=== PATIENT | male | born 1950 | race Caucasian/White ===

== ENCOUNTER → 2019-05-16 | Outpatient (CLI) | payer MEDICARE, SELFPAY ==
[2019-05-16 18:01] LABS: Valproic Acid (Depakene) Level 55 ug/mL (50-100)
== END | disposition home or self-care (01) ==
PROVIDERS: PCP Family Medicine; Referring Provider Family Medicine; Visit Provider Family Medicine
DX: R56.9 Unspecified convulsions (principal)
CPT/HCPCS: 36415; 80164

== ENCOUNTER → 2019-08-23 | Outpatient (CLI) | payer MEDICARE, SELFPAY ==
[2019-08-23 10:29] LABS: PSA,Total - Annual Screen 0.89 ng/mL (0.00-4.00)
== END | disposition home or self-care (01) ==
LOC: MFPLAB 09:18
PROVIDERS: PCP Family Medicine; Referring Provider Family Medicine; Visit Provider Family Medicine
DX: Z12.5 Encounter for screening for malignant neoplasm of prostate (principal)
CPT/HCPCS: 36415; 84153; G0103

== ENCOUNTER 2019-09-10 05:22 | Day surgery (SDC) | payer MEDICARE, SELFPAY ==
[2019-09-03 13:37] VITALS: BMI 26.8
[2019-09-10] VITALS (9 sets, daily range): BP systolic 111–174; BP diastolic 74–114; PULSE 56–66; RESP 16; TEMP 36.3–36.8; O2SAT 96–100; BMI 26.8
--- NOTE | 2019-09-10 | COLBX_PTH ---
PATIENT: OLGA LOZANO LOC: EN U#:[id number] AGE/SX: 68/M ROOM: RE09/10/[address]: Dr. Zeb Vaughn MD : 1950 BED: DIS: 09/10/2019 SPEC #: [id number] RECD: 09/10/19 09:15 STATUS: BENNETT JENAE #: [id number] RACHEL: 09/10/19 00:[address]: Zeb Vaughn DEPT: SURGICAL PATHOLOGY RECD BY: Vince Diaz ENTERED: 09/10/19 13:57 SP TYPE: COLON BX OTHR DR: Dr. Rj Monzon MD Tissues: A - Duodenum, NOS B - Gastric mucous membrane C - Stomach, NOS D - Esophagus, NOS E - Esophagus, NOS Procedures: Special Stain Group II Surgery Specimen Level IV Alcian Blue/PAS (control) HEADER OPERATION: EGD (MOD) PRE-OP DIAGNOSIS: History Aparicio's, GERD TISSUE SUBMITTED: A - Duodenum biopsy, B - Antrum biopsy for histo and H. pylori, C - Lesser curvature polyp biopsy, D - Distal esophagus biopsy, E - Mid esophagus white plaque biopsy MICROSCOPIC DIAGNOSIS A. Duodenum, biopsy: Minimal nonspecific chronic inflammation. B. Gastric antrum, biopsy: Chronic gastritis. See comment. C. Lesser curvature of stomach polyp, biopsy: Consistent with hyperplastic polyp. D. Distal esophagus, biopsy: Gastroesophageal junction mucosa with chronic inflammation. No evidence of intestinal metaplasia. Focal acute inflammation. See comment. E. Mid esophagus, biopsy: Fragments of benign squamous mucosa. No evidence of inflammation. AM:enrrique 09/11/19 COMMENT B. The results of immunohistochemistry for Helicobacter pylori will be reported separately ([id number]). D. Alcian blue/PAS stain with matched control supports the above diagnosis. MICROSCOPIC DESCRIPTION Slides are reviewed. GROSS DESCRIPTION A - Received in fixative is one container labeled with the patient's name and designated duodenum biopsy. The specimen consists of one irregular fragment of light lira soft tissue that measures 0.2 x 0.2 x 0.1 cm. The specimen is totally submitted in one cassette. B - Received in fixative is one container labeled with the patient's name and designated gastric antrum. The specimen consists of one irregular fragment of light lira soft tissue that measures 0.6 x 0.2 x 0.1 cm. The specimen is totally submitted in one cassette. C - Received in fixative is one container labeled with the patient's name and designated lesser curvature polyp biopsy. The specimen consists of one irregular fragment of light lira soft tissue that measures 0.2 x 0.2 x 0.1 cm. The specimen is totally submitted in one cassette. D - Received in fixative is one container labeled with the patient's name and designated distal esophagus biopsy. The specimen consists of multiple irregular fragments of light lira soft tissue that in aggregate measure 1 x 0.8 x 0.1 cm. The specimen is totally submitted in one cassette. E - Received in fixative is one container labeled with the patient's name and designated mid esophagus white plaque biopsy. The specimen consists of multiple irregular fragments of light lira soft tissue that in aggregate measure 1 x 0.5 x 0.1 cm. The specimen is totally submitted in one cassette. / AM:enrrique 09/10/19 TC:3 CPT: 10723 x5, 31828
[2019-09-10] MEDS: Lactated Ringers 1,000 ML 100 ML IV (06:01)
--- NOTE | 2019-09-10 06:07 | PCM.HP.BLA ---
Problem List (1) History of Aparicio's esophagus Status: Acute (2) Gastroesophageal reflux disease Status: Acute Qualifiers: Esophagitis presence: with esophagitis History and Physical Date of Admission: 09/10/19 Intake Visit Reasons: Esophagogastroduodenoscopy Chief Complaint: possible [employer] Specialist Required: No Is patient in pain?: No Allergies No Known Allergies Allergy (Verified 09/03/19 13:38) Medications divalproex 500 mg tablet,extended release 24 hr 500 mg PO DAILY tab 09/03/19 [History Confirmed 09/03/19] felbamate 600 mg tablet ea PO 09/03/19 [History Confirmed 09/03/19] [facility] Medical History (Updated 09/03/19 @ 14:[address] Zeb Vaughn MD) History of Aparicio's esophagus (Acute) Gastroesophageal reflux disease (Acute) GERD (gastroesophageal reflux disease) (Acute) Hemorrhoid (Acute) Seizure (Acute) Surgical History (Updated 09/03/19 @ 13:36 by Lizeth Francis) History of colonoscopy (Acute) History of esophagogastroduodenoscopy (EGD) (Acute ~2009) Family History (Updated 09/03/19 @ 13:37 by Lizeth Francis) Mother Diabetes Thyroid disorder Father CVA (cerebral vascular accident) Cancer Grandfather Heart disease Social History (Updated 09/03/19 @ 14:[address] Zeb Vaughn MD) Smoking Status: Never smoker HPI HPI HPI: OLGA LOZANO, is a 68 M who presents to the office today for surgical consultation regarding potential history of Aparicio's esophagus. The patient has had long-term reflux disease. He was on a PPI for an extended period of time but he is now off of that because of concerns of possible side effect. His most recent and only previous upper endoscopy was April 09, 2009. That was performed in [facility]. Findings suggested visually mild gastritis hiatal hernia reflux esophagitis and irregularity suspicious for Aparicio's. Final pathology showed mild chronic active gastritis with minute lymphoid aggregate. Squamous mucosa of the distal esophagus with fold focal mild acute erosive esophagitis. Adjacent gastric glandular mucosa with mild chronic inflammation and intestinal metaplasia. They do not actually state Aparicio's but that would be consistent with Aparicio's. The patient is not currently on any reflux medications. He does not use tobacco or alcohol. He states he had about a purposeful 15 pound weight loss and that traumatic densely helped with his reflux symptoms. He works in [employer]. The patient is referred by his primary care doctor Dr Rj Monzon regarding the possible past history of Aparicoi's esophagus and recommendations and a surgical written consult will be returned to him. HPI HPI HPI: OLGA LOZANO, is a 68 M who presents to the office today for ROS General General: No weight change, appetite, fatigue, colon cancer, breast cancer or weakness HEENT HEENT: No difficulty swallowing, eye injury, eye surgery, swollen glands or hoarseness Endo Endocrine: No thyroid disease, diabetes mellitus, thyroid cancer, Hair loss, heat intolerance or cold intolerance Cardio Cardiovascular: No murmur, pacemaker, heart disease, atrial fibrillation, high blood pressure, heart attack, heart stent, palpitations, shortness of breat with exertion or chest pain Psych Psychiatric: No depression, anxiety or hearing voices Resp Respiratory: No shortness of breath, No sleep apnea, No cough, No COPD, No asthma, No emphysema, No wheezing Gastro Gastrointestinal: No abdominal pain, No nausea or vomiting, No diarrhea, No constipation, No blood in stool, Yes acid reflux, Yes hemorrhoids, No ulcers, No gallbladder problem, No black,tarry stools Earnest Hematologic: No blood thinners, No blood disorders, No bleeding, No anemia, No blood clots Neuro Neurologic: No weakness Exam Const General: cooperative, healthy appearing, comfortable, no acute distress Nutritional Appearance: average body habitus, well nourished Orientation: alert, awake, oriented x3 HENMT Head: normal to inspection Chest Chest palpation & inspection: normal inspection of the chest Resp Effort & Inspection: normal respiratory effort Auscultation: clear to auscultation bilaterally Cardio Rate: regular rate Rhythm: regular rhythm Heart Sounds: no murmurs GI Palpation: soft, no hepatosplenomegaly Auscultation: normal bowel sounds Musc Cervical Spine: normal cervical lordosis Neuro Speech: speech normal Extrem General: no calf tenderness Psych Affect: normal affect Assessment & Plan Problems 1. Gastroesophageal reflux disease with esophagitis K21.0 2. History of Aparicio's esophagus Z87.19 Plan Really 60-year-old gentleman with a previous history consistent with Aparicio's esophagus. He has had a previous history of quite symptomatic gastroesophageal reflux disease but currently has managed on diet and some weight loss. He is not currently on any medication. There is no personal or family history of esophageal cancer. There is no personal family history of colon polyps or colon cancer. I propose for him a esophagogastroduodenoscopy with possible biopsy. Very careful inspection of the EG junction will be pursued. The patient has had an opportunity to ask and have questions answered. Believe that this can be accomplished with monitored anesthesia. I appreciate the opportunity of assisting with her surgical care. Cc: Dr Rj Vaughn M.D., F.A.C.S. Orders Orders: EGD Today Coding Level of Care Code 32133 Diagnoses Gastroesophageal reflux disease with esophagitis K21.0 ??Esophagitis presence: with esophagitis History of Aparicio's esophagus Z87.19 09/03/19 1409 <Electronically signed by Zeb Vaughn MD> Date Zeb Vaughn MD I have re-examined the patient. There are no clinical changes since date of exam. Procedure Criteria Procedure Type: Elective COVID Risk Discussion: The surgeon/proceduralist and patient have discussed in detail the risk of exposure to and/or potential harm posed by the COVID-19 virus with having a surgery/procedure at this time versus the risk of delaying the surgery/procedure. It is not possible to know either the risk of delaying the surgery or procedure or chance of getting an infection with perfect accuracy, but a joint decision was made between the patient and the surgeon/proceduralist to proceed at this time with the scheduled surgery/procedure as indicated on the consent form.
--- NOTE | 2019-09-10 06:30 | IMM_PTH ---
PATIENT: OLGA LOZANO LOC: EN U#:[id number] AGE/SX: 68/M ROOM: RE09/10/[address]: Dr. Zeb Vaughn MD : 1950 BED: DIS: 09/10/2019 SPEC #: [id number] RECD: 09/11/19 07:28 STATUS: BENNETT RESilke #: [id number] RACHEL: 09/10/19 06:[address]: Zeb Vaughn DEPT: IMMUNOHISTOCHEMISTRY RECD BY: Khushi Meek Chai ENTERED: 09/11/19 07:28 SP TYPE: IMMUNO OTHR DR: Dr. Rj Monzon MD Tissues: B - Stomach, NOS Procedures: H Pylori (initial) PHYSICIAN & INSTITUTION [place] [id number] SPECIMEN INFORMATION: Tissue Source: B - Antrum biopsy Clinical Info: Aparicio's, GERD Specimen Number: [id number] CPT code: 91365 METHODOLOGY: Deparaffinized sections of prefer/formalin-fixed tissue or PAP/DQ stained slides are incubated with monoclonal/polyclonal antibodies/oligonucleotide probes. Localization is made via biotin free immunoperoxidase method. Appropriate controls are performed and reacted as expected. Results on target cell population are indicated in the following table: RESULTS: ANTIBODY / CLONE RESULT Block B H Pylori (polyclonal) negative These tests were developed and their performance characteristics determined by [facility]. They may not have been cleared or approved by the U.S. Food and Drug Administration. The FDA has determined that such clearance or approval is not necessary. INTERPRETATION: B. Antrum biopsy: Negative for Helicobacter pylori organisms. AM:enrrique 09/12/19
--- NOTE | 2019-09-10 06:49 | OP.EGD_ITS ---
Patient Name: Tito Nunez Procedure Date: 09/10/2019 6:16 AM Date of : 1950 Age: 68 Procedure: Upper GI endoscopy Indications: Gastro-esophageal reflux disease, Follow-up of Aparicio's esophagus Providers: Zeb Vaughn MD Referring MD: Rj Monzon Medicines: Midazolam 3.5 mg IV, Meperidine 100 mg IV Complications: No immediate complications. Procedure: Pre-Anesthesia Assessment: - Prior to the procedure, a History and Physical was performed, and patient medications and allergies were reviewed. The patient's tolerance of previous anesthesia was also reviewed. The risks and benefits of the procedure and the sedation options and risks were discussed with the patient. All questions were answered, and informed consent was obtained. Prior Anticoagulants: The patient has taken no previous anticoagulant or antiplatelet agents. ASA Grade Assessment: II - A patient with mild systemic disease. After reviewing the risks and benefits, the patient was deemed in satisfactory condition to undergo the procedure. After obtaining informed consent, the endoscope was passed under direct vision. Throughout the procedure, the patient's blood pressure, pulse, and oxygen saturations were monitored continuously. The Endoscope was introduced through the mouth, and advanced to the second part of duodenum. The upper GI endoscopy was accomplished without difficulty. The patient tolerated the procedure well. Moderate Sedation: Moderate (conscious) sedation was personally administered by the endoscopist. The following parameters were monitored: oxygen saturation, heart rate, blood pressure, and response to care. Total physician intraservice time was 15 minutes. Scope In: 6:28:57 AM Scope Out: 6:39:52 AM Total Procedure Duration Time 0 hours 10 minutes 55 seconds Findings: Esophagitis with no bleeding was found 40 cm from the incisors. Biopsies were taken with a cold forceps for histology. There were esophageal mucosal changes consistent with short-segment Aparicio's esophagus present at the gastroesophageal junction. The maximum longitudinal extent of these mucosal changes was 2 cm in length. Mucosa was biopsied with a cold forceps for histology in a targeted manner at the gastroesophageal junction. mild mucosal variance characterized by plague was found in the middle third of the esophagus. Biopsies were taken with a cold forceps for histology. A small hiatal hernia was present. Diffuse mildly erythematous mucosa without bleeding was found in the gastric antrum. Biopsies were taken with a cold forceps for histology. One sessile polyp with no bleeding and no stigmata of recent bleeding was found on the lesser curvature of the stomach. The polyp was removed with a cold biopsy forceps. Resection and retrieval were complete. Diffuse mildly erythematous mucosa without active bleeding and with no stigmata of bleeding was found in the duodenal bulb. Biopsies were taken with a cold forceps for histology. Impression: - Reflux esophagitis. Biopsied. - Esophageal mucosal changes consistent with short-segment Aparicio's esophagus. Biopsied. - Esophageal mucosal variant. Biopsied. - Small hiatal hernia. - Erythematous mucosa in the antrum. Biopsied. - One gastric polyp. Resected and retrieved. - Erythematous duodenopathy. Biopsied. Recommendation: - Discharge patient to home. - Resume previous diet. - Continue present medications. - Return to my office in 1 week. Consider possible additional workup for surgical reflux procedure Procedure Code(s): --- Professional --- 29110, Esophagogastroduodenoscopy, flexible, transoral; with biopsy, single or multiple 60551, 59, Moderate sedation services provided by the same physician or other qualified health home health care social worker performing the diagnostic or therapeutic service that the sedation supports, requiring the presence of an independent trained observer to assist in the monitoring of the patient's level of consciousness and physiological status; initial 15 minutes of intraservice time, patient age 5 years or older Diagnosis Code(s): --- Professional --- K21.0, Gastro-esophageal reflux disease with esophagitis K22.70, Aparicio's esophagus without dysplasia K22.8, Other specified diseases of esophagus K44.9, Diaphragmatic hernia without obstruction or gangrene K31.89, Other diseases of stomach and duodenum K31.7, Polyp of stomach and duodenum CPT copyright 2017 [employer]. All rights reserved. The codes documented in this report are preliminary and upon career placement specialist review may be revised to meet current compliance requirements. Zeb Vaughn MD 09/10/2019 6:48:39 AM This report has been signed electronically. Number of Addenda: 0 Note Initiated On: 09/10/2019 6:16 AM
--- NOTE | 2019-09-10 06:49 | OP.CCLET_ITS ---
09/10/2019 Rj Monzon [address] [place] [address] Re : Upper GI endoscopy procedure for Tito Nunez Dear Dr. Monzon This procedure was performed on Tuesday, September 10, 2019. My impressions and recommendations are as follows: Impressions : - Reflux esophagitis. Biopsied. - Esophageal mucosal changes consistent with short-segment Aparicio's esophagus. Biopsied. - Esophageal mucosal variant. Biopsied. - Small hiatal hernia. - Erythematous mucosa in the antrum. Biopsied. - One gastric polyp. Resected and retrieved. - Erythematous duodenopathy. Biopsied. Recommendations : - Discharge patient to home. - Resume previous diet. - Continue present medications. - Return to my office in 1 week. Consider possible additional workup for surgical reflux procedure My findings are described in the full procedure note, which is enclosed. If I can be of further assistance, please feel free to contact me at Doctor phone number(s): Work: . Sincerely, Zeb Vaughn MD 09/10/2019 6:48:39 AM This report has been signed electronically.
== END 2019-09-10 07:59 | disposition home or self-care (01) ==
LOC: EN 05:22 → AC 05:23
PROVIDERS: PCP Family Medicine; Referring Provider Family Medicine; Visit Provider Surgery
PROC: (CPT 43239; principal; 2019-09-10 06:25)
DX: K29.50 Unspecified chronic gastritis without bleeding (principal); K29.80 Duodenitis without bleeding; K31.7 Polyp of stomach and duodenum; K21.0 Gastro-esophageal reflux disease with esophagitis; K44.9 Diaphragmatic hernia without obstruction or gangrene; Z11.59 Encounter for screening for other viral diseases
CPT/HCPCS: 43239; 87635; 88305; 88313; 88342; 99152; 99153; G2023; J7120; U0003

== ENCOUNTER → 2020-07-29 08:18 | Outpatient (CLI) | payer MEDICARE, SELFPAY ==
[2020-05-26 08:57] VITALS: BMI 27.6
[2020-07-29 10:24] LABS: Absolute Lymphocyte Count 1.24 X10^3/uL (0.83-4.51); Absolute Neutrophil Count 3.4 X10^3/uL (2.0-7.7); Basophil# 0.03 X10^3/uL; Basophil% 0.6 % (0-1); Eosinophil# 0.03 X10^3/uL; Eosinophils% 0.6 % (0-5); Hematocrit 42.5 % (40-54); Hemoglobin 14.5 g/dL (13.0-16.5); Lymphocyte # 1.24 X10^3/ul (0.83-4.51); Lymphocyte % 24.4 % (19-41); Mean Corp Hgb Conc 34.1 g/dL (32-36); Mean Corpuscular Hgb 33.6 pg (27.0-32.0); Mean Corpuscular Volume 98.4 fL (80-94); Mean Platelet Vol. 9.9 fl (6.2-12.0); Monocyte# 0.38 X10^3/uL; Monocyte% 7.5 % (0-10); NRBC Flagged by Analyzer 0 % (0-5); Neutrophil % 66.7 % (47-70); Platelet Count 266 K/mm3 (150-450); RBC Distribution Width CV 11.6 % (11.6-14.6); RBC Distribution Width SD 42.1 fl (35.1-43.9); Red Blood Count 4.32 M/mm3 (4.6-6.2); White Blood Count 5.1 K/mm3 (4.4-11.0)
[2020-07-29 10:43] LABS: Hemoglobin A1c 5.1 % (3.8-5.6); Vitamin B12 688 pg/mL (211-911)
[2020-07-29 10:57] LABS: ALB/GLOB Ratio 0.9 RATIO (0.9-2.4); AST(SGOT) 32 U/L (15-37); Alanine Aminotransfer ALT/SGPT 55 U/L (16-61); Albumin, Serum 3.4 g/dL (3.2-5.0); Alkaline Phosphatase 64 U/L (45-117); Anion Gap 5 (5-15); BUN 19 mg/dL (7-18); BUN/Creat Ratio 16.1 RATIO (10-20); Calcium,Total 8.8 mg/dL (8.5-10.1); Chloride 107 mmol/L (98-107); Creatinine, Serum 1.18 mg/dL (0.70-1.30); EST Glomerular Filtration Rate 65 mL/min (>60); Est Glom Filt Rate - Afr Amer 79 mL/min (>60); Globulin 3.7 g/dL (2.2-4.2); Glucose 62 mg/dL (74-106); Potassium 4.7 mmol/L (3.5-5.1); Protein, Total 7.1 g/dL (6.4-8.2); Sodium Level 143 mmol/L (136-145); Thyroid Stim Hormone (TSH) 2.84 uIU/mL (0.358-3.74)
[2020-07-31 20:39] LABS: Anti-Thyroglobulin AB < 1.0 IU/mL (0.0-0.9); Thyroglobulin, Serum Qt. 9.3 ng/mL (1.4-29.2); Thyroid Peroxidase AB 9 IU/mL (0-34)
== END ==
PROVIDERS: PCP Family Medicine; Referring Provider Family Medicine; Visit Provider Family Medicine
DX: R79.89 Other specified abnormal findings of blood chemistry (principal)
CPT/HCPCS: 36415; 80053; 82607; 83036; 84432; 84439; 84443; 85025; 86376; 86800

== ENCOUNTER → 2020-08-04 08:41 | Outpatient (CLI) | payer MEDICARE, SELFPAY ==
[2020-05-26 08:57] VITALS: BMI 27.6
--- NOTE | 2020-08-04 08:44 | RAD_ITS ---
STUDY: X-RAY - LUMBAR SPINE REASON FOR EXAM: Male, 69 years old. FACET ARTHROPATHY TECHNIQUE: 5 view(s) of the lumbar spine were obtained. COMPARISON: None FINDINGS: Normal lumbar lordosis. There is multilevel endplate spondylosis of the lumbar vertebrae. There is multi-level degenerative disc disease with multi-level disc space narrowing. There is facet arthropathy most prominent at L3-S1. The soft tissue structures are unremarkable. RAD/L/S Spine Min 4 Views IMPRESSION: Degenerative changes of the spine. Electronically Signed: Beverly Ruiz MD at 9:52 EDT Tel , Service support ,
== END ==
PROVIDERS: PCP Family Medicine; Referring Provider Family Medicine; Visit Provider Family Medicine
DX: M47.819 Spondylosis without myelopathy or radiculopathy, site unspecified (principal)
CPT/HCPCS: 72110

== ENCOUNTER → 2020-09-16 09:16 | Outpatient (CLI) | payer MEDICARE, SELFPAY ==
[2020-05-26 08:57] VITALS: BMI 27.6
[2020-09-16 11:18] LABS: ALB/GLOB Ratio 0.9 RATIO (0.9-2.4); AST(SGOT) 22 U/L (15-37); Alanine Aminotransfer ALT/SGPT 39 U/L (16-61); Albumin, Serum 3.5 g/dL (3.2-5.0); Alkaline Phosphatase 63 U/L (45-117); Anion Gap 7 (5-15); BUN 23 mg/dL (7-18); BUN/Creat Ratio 18.7 RATIO (10-20); Calcium,Total 8.8 mg/dL (8.5-10.1); Chloride 108 mmol/L (98-107); Creatinine, Serum 1.23 mg/dL (0.70-1.30); EST Glomerular Filtration Rate 62 mL/min (>60); Est Glom Filt Rate - Afr Amer 75 mL/min (>60); Globulin 3.8 g/dL (2.2-4.2); Glucose 67 mg/dL (74-106); PSA,Total - Annual Screen 0.94 ng/mL (0.00-4.00); Potassium 3.8 mmol/L (3.5-5.1); Protein, Total 7.3 g/dL (6.4-8.2); Sodium Level 142 mmol/L (136-145)
[2020-09-17 16:43] LABS: Anti-Thyroglobulin AB < 1.0 IU/mL (0.0-0.9); Thyroglobulin, Serum Qt. 9.5 ng/mL (1.4-29.2); Thyroid Peroxidase AB < 8 IU/mL (0-34)
== END ==
PROVIDERS: PCP Family Medicine; Referring Provider Family Medicine; Visit Provider Family Medicine
DX: E04.1 Nontoxic single thyroid nodule (principal); Z12.5 Encounter for screening for malignant neoplasm of prostate
CPT/HCPCS: 36415; 80053; 84153; 84432; 84439; 84443; 86376; 86800; G0103

== ENCOUNTER → 2020-09-18 11:27 | Outpatient (CLI) | payer MEDICARE, SELFPAY ==
[2020-05-26 08:57] VITALS: BMI 27.6
--- NOTE | 2020-09-18 11:30 | US_ITS ---
STUDY: THYROID ULTRASOUND REASON FOR EXAM: Male, 69 years old. Palpable nodule TECHNIQUE: Ultrasound evaluation of the thyroid was performed with real-time and static souza-scale imaging. COMPARISON: None. FINDINGS: RIGHT LOBE: The right lobe of the thyroid gland measures 5.4 x 1.8 x 1.8 cm. There is a homogeneous echotexture. There is a solid/cystic 3 mm nodule LEFT LOBE: The left lobe of the thyroid gland measures 5.0 x 1.6 x 2.1 cm. There is a homogeneous echotexture. There are 2 separate simple cysts, both measuring 3 mm. ISTHMUS: The isthmus measures 0.4 cm. The regional lymph nodes are normal. US/Thyroid IMPRESSION: Enlarged homogeneous thyroid gland. No suspicious solid hypoechoic nodule 0.3 cm complex solid/cystic in the mid right thyroid lobe 0.3 cm cysts in the mid and lower pole of the left lobe Electronically Signed: Candido Massey MD at 12:39 EDT , Service support ,
== END ==
PROVIDERS: PCP Family Medicine; Referring Provider Family Medicine; Visit Provider Family Medicine
DX: E04.1 Nontoxic single thyroid nodule (principal)
CPT/HCPCS: 76536

== ENCOUNTER 2020-10-23 05:16 | Day surgery (SDC) | payer MEDICARE, SELFPAY ==
[2020-10-23] VITALS (14 sets, daily range): BP systolic 120–167; BP diastolic 54–92; PULSE 56–65; RESP 14–18; TEMP 36.1–36.4; O2SAT 98–100; BMI 27.6
[2020-10-23] MEDS: Lactated Ringers 1,000 ML 100 ML IV (06:02)
--- NOTE | 2020-10-23 06:17 | PCM.HP.STD ---
HPI - General HPI Narrative OLGA LOZANO, is a 69 M who presents for a surveillance colonoscopy. There is a history of a previous colon polyps perhaps 7 years ago. He has no bright red blood per rectum or melena. He has had chronic bowel complaints. He has not had a bowel surgery. [facility] Medical History (Updated 10/23/20 @ 06:[address] Zeb Vaughn MD) Back pain Gastroesophageal reflux disease GERD (gastroesophageal reflux disease) Hemorrhoid History of Aparicio's esophagus History of hiatal hernia History of steroid therapy Injury of head and neck Non-smoker Seizure Wears glasses Wears hearing aid Home Medications divalproex 500 mg tablet,extended release 24 hr 500 mg PO BID #60 tablet 05/26/20 [Rx Last Taken 10/23/20] famotidine 20 mg tablet 20 mg PO DAILY 05/26/20 [History Last Taken 10/23/20] felbamate 600 mg tablet 600 mg PO TID #90 tablet 05/26/20 [Rx Last Taken 10/23/20] Allergy/AdvReac Type Severity Reaction Status Date / Time No Known Allergies Allergy Verified 10/23/20 05:45 Family History (Updated 05/26/20 @ 09:04 by Zoila Bennett) Mother Diabetes Thyroid disorder Father CVA (cerebral vascular accident) Cancer Grandfather Heart disease Brother Cancer Surgical History History of colonoscopy History of esophagogastroduodenoscopy (EGD) (~2009) Social History (Updated 05/26/20 @ 13:[address] Zoran Villarreal MD) Smoking Status: Never smoker Electronic Cigarette Use: not used second hand exposure: No alcohol intake: never substance use type: does not use ROS Constitutional Constitutional: Reports systems reviewed and no addt'l complaints, except as documented Cardiovascular Cardiovascular: Denies chest pain Respiratory/Chest Respiratory/Chest: Denies shortness of breath at rest Gastrointestinal Gastrointestinal: Denies abdominal pain, change in bowel habits, hematochezia or melena Vital Signs Vital Signs Vital Signs: 10/23/20 05:47 Temperature 97.0 F L Temperature Source Temporal Pulse Rate 57 L Respiratory Rate 16 Respiratory Pattern Normal Blood Pressure 127/87 H Blood Pressure Mean 100 Blood Pressure Source Monitor Blood Pressure Position Semi-Fowlers Blood Pressure Location Right Arm Pulse Ox 98 Oxygen Delivery Method Room Air Weight Weight: 176 lb 12.972 oz Body Mass Index (BMI) 27.6 Physical Exam Const alert, oriented x3 and no apparent distress General Appearance: cooperative and comfortable Eyes General Eye: normal appearance of both eyes Neck General: normal visual inspection Chest inspection of chest normal Resp Effort and Inspection: able to speak in complete sentences and symmetric chest movement Auscultation: clear to auscultation bilaterally Cardio regular rate and regular rhythm GI soft to palpation, non-tender and non-distended Extremity no calf tenderness Neuro oriented x3 Psych thought process normal Assessment & Plan Assessment/Plan (1) Screening for intestinal cancer: PLAN: The patient presents via open access today. I recommend to him a screening colonoscopy with possible biopsy or polypectomy as indicated. He is aware of the technique, benefit, risk, alternatives. He has had an opportunity to ask and have questions answered. We will proceed as noted. Zeb Vaughn M.D., F.A.C.S.
--- NOTE | 2020-10-23 06:30 | COLBX_PTH ---
PATIENT: OLGA LOZANO LOC: EN U#:[id number] AGE/SX: 69/M ROOM: RE10/23/[address]: Dr. Zeb Vaughn MD : 1950 BED: DIS: 10/23/2020 SPEC #: [id number] RECD: 10/23/20 10:59 STATUS: BENNETT RESilke #: [id number] RACHEL: 10/23/20 06:[address]: Zeb Vaughn DEPT: SURGICAL PATHOLOGY RECD BY: Barbara Duong ENTERED: 10/23/20 11:29 SP TYPE: COLON BX OT DR: Dr. Rj Monzon MD Tissues: A - Cecum, NOS B - Ascending colon C - Transverse colon D - Sigmoid colon biopsy Procedures: Surgery Specimen Level IV HEADER OPERATION: Colonoscopy ? open access (MOD) PRE-OP DIAGNOSIS: Screening for intestinal cancer TISSUE SUBMITTED: A. Cecum polyp biopsy, B. Mid ascending polyp, C. Proximal transverse polyp biopsy, D. Mid sigmoid polyp MICROSCOPIC DIAGNOSIS A. Cecal polyp, biopsy: Fragments of tubular adenoma. B. Mid ascending colon polyp, biopsy: Fragments of tubular adenoma. C. Proximal transverse colon polyp, biopsy: Fragments of tubular adenoma. D. Mid sigmoid colon polyp, biopsy: Fragments of tubular adenoma. AM:enrrique 10/26/2020 MICROSCOPIC DESCRIPTION Slides are reviewed. GROSS DESCRIPTION A - Received in fixative is one container labeled with the patient's name and designated cecal polyp biopsy. The specimen consists of multiple irregular fragments of light lira soft tissue that in aggregate measure 1.5 x 1 x 0.1 cm. The specimen is totally submitted in one cassette. B - Received in fixative is one container labeled with the patient's name and designated mid ascending polyp. The specimen consists of multiple irregular fragments of light lira soft tissue that in aggregate measure 1 x 0.8 x 0.1 cm. The specimen is totally submitted in one cassette. C - Received in fixative is one container labeled with the patient's name and designated proximal transverse polyp biopsy. The specimen consists of multiple irregular fragments of light lira soft tissue that in aggregate measure 0.7 x 0.5 x 0.1 cm. The specimen is totally submitted in one cassette. D - Received in fixative is one container labeled with the patient's name and designated mid sigmoid polyp. The specimen consists of multiple irregular fragments of light lira soft tissue that in aggregate measure 1 x 1 x 0.2 cm. The specimen is totally submitted in one cassette. / AM:enrrique 10/23/20 TC:5 CPT: 51310 x4
--- NOTE | 2020-10-23 07:04 | OP.COLON_ITS ---
Patient Name: Tito Nunez Procedure Date: 10/23/2020 6:14 AM Date of : 1950 Age: 69 Procedure: Colonoscopy Indications: High risk colon cancer surveillance: Personal history of colonic polyps Providers: Zeb Vaughn MD Medicines: Midazolam 4.5 mg IV, Meperidine 100 mg IV Patient Profile: Last Colonoscopy: more than 3 years ago. Complications: No immediate complications. Procedure: Pre-Anesthesia Assessment: - Prior to the procedure, a History and Physical was performed, and patient medications and allergies were reviewed. The patient's tolerance of previous anesthesia was also reviewed. The risks and benefits of the procedure and the sedation options and risks were discussed with the patient. All questions were answered, and informed consent was obtained. Prior Anticoagulants: The patient has taken no previous anticoagulant or antiplatelet agents. ASA Grade Assessment: II - A patient with mild systemic disease. After reviewing the risks and benefits, the patient was deemed in satisfactory condition to undergo the procedure. After I obtained informed consent, the scope was passed under direct vision. Throughout the procedure, the patient's blood pressure, pulse, and oxygen saturations were monitored continuously. The colonoscope was introduced through the anus and advanced to the cecum, identified by appendiceal orifice and ileocecal valve. The colonoscopy was performed without difficulty. The patient tolerated the procedure well. The quality of the bowel preparation was adequate to identify polyps. The ileocecal valve and the appendiceal orifice were photographed. Moderate Sedation: Moderate (conscious) sedation was personally administered by the endoscopist. The following parameters were monitored: oxygen saturation, heart rate, blood pressure, and response to care. Total physician intraservice time was 18 minutes. Scope In: 6:31:30 AM Scope Withdrawal Time 0 hours 19 minutes 56 seconds Scope Out: 6:57:22 AM Total Procedure Duration Time 0 hours 25 minutes 52 seconds Findings: The digital rectal exam findings include non-thrombosed external hemorrhoids, non-thrombosed internal hemorrhoids and internal hemorrhoids that prolapse with straining, but require manual replacement into the anal canal (Grade III). Pertinent negatives include normal prostate (size, shape, and consistency). A 8 mm polyp was found in the cecum. The polyp was sessile. The polyp was removed with a cold biopsy forceps. Resection and retrieval were complete. A 9 mm polyp was found in the mid ascending colon. The polyp was sessile. The polyp was removed with a cold snare. Resection and retrieval were complete. A 6 mm polyp was found in the proximal transverse colon. The polyp was sessile. The polyp was removed with a cold biopsy forceps. Resection and retrieval were complete. A 9 mm polyp was found in the mid sigmoid colon. The polyp was sessile. The polyp was removed with a hot snare. Resection and retrieval were complete. Scattered diverticula were found in the sigmoid colon. Impression: - Non-thrombosed external hemorrhoids, non-thrombosed internal hemorrhoids and internal hemorrhoids that prolapse with straining, but require manual replacement into the anal canal (Grade III) found on digital rectal exam. - One 8 mm polyp in the cecum, removed with a cold biopsy forceps. Resected and retrieved. - One 9 mm polyp in the mid ascending colon, removed with a cold snare. Resected and retrieved. - One 6 mm polyp in the proximal transverse colon, removed with a cold biopsy forceps. Resected and retrieved. - One 9 mm polyp in the mid sigmoid colon, removed with a hot snare. Resected and retrieved. - Diverticulosis in the sigmoid colon. Recommendation: - Discharge patient to home. - Resume previous diet. - Continue present medications. - Repeat colonoscopy in 3 years for surveillance based on pathology results. - Telephone my office for pathology results in 1 week. Procedure Code(s): --- Professional --- 71761, Colonoscopy, flexible; with removal of tumor(s), polyp(s), or other lesion(s) by snare technique 95048, 59, Colonoscopy, flexible; with biopsy, single or multiple 52607, 59, Moderate sedation services provided by the same physician or other qualified health progressive care nurse performing the diagnostic or therapeutic service that the sedation supports, requiring the presence of an independent trained observer to assist in the monitoring of the patient's level of consciousness and physiological status; initial 15 minutes of intraservice time, patient age 5 years or older Diagnosis Code(s): --- Professional --- Z86.010, Personal history of colonic polyps K64.2, Third degree hemorrhoids K64.4, Residual hemorrhoidal skin tags D12.0, Benign neoplasm of cecum D12.2, Benign neoplasm of ascending colon D12.3, Benign neoplasm of transverse colon (hepatic flexure or splenic flexure) D12.5, Benign neoplasm of sigmoid colon K57.30, Diverticulosis of large intestine without perforation or abscess without bleeding CPT copyright 2017 [employer]. All rights reserved. The codes documented in this report are preliminary and upon flap presser review may be revised to meet current compliance requirements. Zeb Vaughn MD 10/23/2020 7:03:47 AM This report has been signed electronically. Number of Addenda: 0 Note Initiated On: 10/23/2020 6:14 AM
--- NOTE | 2020-10-23 07:05 | OP.CCLET_ITS ---
10/23/2020 Rj Monzon [address] [place] [address] Re : Colonoscopy procedure for Tito Nunez Dear Dr. Monzon This procedure was performed on Friday, October 23, 2020. My impressions and recommendations are as follows: Impressions : - Non-thrombosed external hemorrhoids, non-thrombosed internal hemorrhoids and internal hemorrhoids that prolapse with straining, but require manual replacement into the anal canal (Grade III) found on digital rectal exam. - One 8 mm polyp in the cecum, removed with a cold biopsy forceps. Resected and retrieved. - One 9 mm polyp in the mid ascending colon, removed with a cold snare. Resected and retrieved. - One 6 mm polyp in the proximal transverse colon, removed with a cold biopsy forceps. Resected and retrieved. - One 9 mm polyp in the mid sigmoid colon, removed with a hot snare. Resected and retrieved. - Diverticulosis in the sigmoid colon. Recommendations : - Discharge patient to home. - Resume previous diet. - Continue present medications. - Repeat colonoscopy in 3 years for surveillance based on pathology results. - Telephone my office for pathology results in 1 week. My findings are described in the full procedure note, which is enclosed. If I can be of further assistance, please feel free to contact me at Doctor phone number(s): Work: . Sincerely, Zeb Vaughn MD 10/23/2020 7:03:47 AM This report has been signed electronically.
== END 2020-10-23 08:09 | disposition home or self-care (01) ==
LOC: EN 05:16 → AC 05:17
PROVIDERS: PCP Family Medicine; Referring Provider Family Medicine; Visit Provider Surgery
PROC: 0DJD8ZZ Inspection of Lower Intestinal Tract, Via Natural or Artificial Opening Endoscopic (ICD-10-PCS; CPT 45378; principal; 2020-10-23 06:25)
DX: Z12.11 Encounter for screening for malignant neoplasm of colon (principal); D12.2 Benign neoplasm of ascending colon; D12.0 Benign neoplasm of cecum; D12.5 Benign neoplasm of sigmoid colon; D12.3 Benign neoplasm of transverse colon; K57.30 Diverticulosis of large intestine without perforation or abscess without bleeding; K64.2 Third degree hemorrhoids; Z86.010 Personal history of colon polyps; K21.9 Gastro-esophageal reflux disease without esophagitis
CPT/HCPCS: 45380; 88305; 99152; 99153; J7120

== ENCOUNTER → 2020-12-05 07:46 | Outpatient (CLI) | payer MEDICARE, SELFPAY ==
[2020-12-05 08:52] LABS: Hematocrit 45.3 % (40-54); Hemoglobin 15.5 g/dL (13.0-16.5); Mean Corp Hgb Conc 34.2 g/dL (32-36); Mean Corpuscular Hgb 33.3 pg (27.0-32.0); Mean Corpuscular Volume 97.2 fL (80-94); Mean Platelet Vol. 10.1 fl (6.2-12.0); Platelet Count 254 K/mm3 (150-450); RBC Distribution Width CV 11.3 % (11.6-14.6); RBC Distribution Width SD 40.1 fl (35.1-43.9); Red Blood Count 4.66 M/mm3 (4.6-6.2); White Blood Count 5.2 K/mm3 (4.4-11.0)
[2020-12-05 09:18] LABS: ALB/GLOB Ratio 0.9 RATIO (0.9-2.4); AST(SGOT) 20 U/L (15-37); Alanine Aminotransfer ALT/SGPT 47 U/L (16-61); Albumin, Serum 3.5 g/dL (3.2-5.0); Alkaline Phosphatase 66 U/L (45-117); Anion Gap 6 (5-15); BUN 22 mg/dL (7-18); BUN/Creat Ratio 15.9 RATIO (10-20); Calcium,Total 8.6 mg/dL (8.5-10.1); Chloride 107 mmol/L (98-107); Creatinine, Serum 1.38 mg/dL (0.70-1.30); EST Glomerular Filtration Rate 54 mL/min (>60); Est Glom Filt Rate - Afr Amer 66 mL/min (>60); Globulin 3.7 g/dL (2.2-4.2); Glucose 94 mg/dL (74-106); Potassium 4.2 mmol/L (3.5-5.1); Protein, Total 7.2 g/dL (6.4-8.2); Sodium Level 143 mmol/L (136-145)
[2020-12-05 09:41] LABS: Valproic Acid (Depakene) Level 69 ug/mL (50-100)
[2020-12-08 09:08] LABS: Albumin 4.1 g/dL (2.9-4.4); Alpha-1-Globulins 0.2 g/dL (0.0-0.4); Alpha-2-Globulins 0.5 g/dL (0.4-1.0); Gamma Globulin 1.3 g/dL (0.4-1.8); Immunoglobulin A 261 mg/dL (61-437); Immunoglobulin G 1238 mg/dL (603-1613); Immunoglobulin M 166 mg/dL (20-172); PROEL- TOTAL PROTEIN 6.9 g/dL (6.0-8.5)
== END ==
PROVIDERS: PCP Family Medicine; Referring Provider Nurse Practitioner Family; Visit Provider Nurse Practitioner Family
DX: G40.909 Epilepsy, unspecified, not intractable, without status epilepticus (principal); Z79.899 Other long term (current) drug therapy
CPT/HCPCS: 36415; 80053; 80164; 82784; 84165; 85027; 86334

== ENCOUNTER → 2021-02-10 14:07 | Outpatient (CLI) | payer MEDICARE, SELFPAY ==
--- NOTE | 2021-02-10 14:09 | RAD_ITS ---
STUDY: X-RAY - RIGHT HAND REASON FOR EXAM: Male, 70 years old. HAND PAIN TECHNIQUE: 3 view(s) of the hand. COMPARISON: None. FINDINGS: Normal radiocarpal articulation. Normal distal radioulnar joint. Normal visualized carpal bones. Normal carpal articulations Normal carpometacarpal articulation of the thumb. Normal second through fifth carpometacarpal joints. Normal metacarpi. Normal metacarpophalangeal joint of the thumb. Normal interphalangeal joint of the thumb. Normal proximal and distal phalanges of the thumb. Joint space narrowing of the second third metacarpophalangeal joints consistent with mild arthrosis. Normal proximal and distal interphalangeal joints of the second through fifth fingers. Normal phalanges of the second through fifth fingers. The soft tissue structures are unremarkable. 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 Electronically Signed: Mino Holcomb MD at 10:46 EST Tel , Service support ,
== END ==
PROVIDERS: PCP Family Medicine; Referring Provider Family Medicine; Visit Provider Family Medicine
DX: M79.641 Pain in right hand (principal)
CPT/HCPCS: 73130

== ENCOUNTER 2021-04-09 15:30 | Outpatient (RCR) | payer MEDICARE, SELFPAY ==
--- NOTE | 2021-03-10 13:55 | HP.PTEVAL ---
Patient's Visit Information OLGA LOZANO is a 70 year old M referred to Physical Therapy by Dr. Rj Monzon MD with a diagnosis of LUMBAR RADICULOPATHY. Date of Evaluation: 03/10/21 Physical Therapist: Tito Gomes PT, Cert MDT, OCS - Visit Plan Frequency: 2x /Week Duration: 4 Weeks Plan: PT INTERVETIONS DLS ABD/BACK ,POSTURAL EX'S ,LE FLEXABLITY ,FUNCTIONAL STRENGTHNEING AND MODALTIES NEEDED - Subjective This 70 y/o male presents to physical therapy with lumbar radiculopathy. Patient has had lumbar radicular symptoms ~ 2 years, but have intermittent. Patient symptoms have became right LS occasional right lateral leg. No mechanism of pain just cumulative affect overtime. Seen DR recommended PT, x-rays and tried prednisone. Patient did have pain injections several years which helped. Aggravating factors standing ,carrying heavy bags ,lifting and walking. Alleviating rest. Patient pain affects quality of sleep. Patient symptoms affects ability to perform ADLS and housework . Bowel/bladder -. coughing/sneezing -. C/O paresthesia right leg. SOCIAL: . VOCATION: [employer] - Pain Right Back Pain Intensity (Out of 10): 5 Pain Intensity Range: 10 Left Lower Extremity Pain Intensity (Out of 10): 4 Pain Intensity Range: 10 - Objective POSTURE: mild forward posture. GAIT: reciprocal pattern. NEURO: c/o paresthesia right lateral leg , reflexes L3-L4,L4-L5,L5-S1 2/3. SYMMTRIES: align. MMT: quads/hams 4/5 ,hip flexion 4/5 ,ankle 4/5. LUMBAR ROM : flexion min loss ,extension mod/severe pain right side ,side glides mod loss. FLEXABLITY: hamstrings mod loss - Special Tests L/S Slump test left side: Negative L/S Slump test right side: Negative L/S Left Straight Leg Raise: Negative L/S Right Straight Leg Raise: Negative Lumbar Standing: Flexion - Mechanical Response: No effect Lumbar Standing: Flexion - Symptoms During Testing: No effect Lumbar Standing: Flexion - Symptoms After Testing: No effect Lumbar Standing: Extension - Mechanical Response: No effect Lumbar Standing: Extension - Symptoms During Testing: Increases Lumbar Standing: Extension - Symptoms After Testing: No worse Lumbar Standing: Right Side Glides - Mechanical Response: No effect Lumbar Standing: Right Side [place] - Symptoms During Testing: Increases Lumbar Standing: Right Side [place] - Symptoms After Testing: No worse Lumbar Standing: Left Side [place] - Mechanical Response: No effect Lumbar Standing: Left Side [place] - Symptoms During Testing: No effect Lumbar Standing: Left Side [place] - Symptoms After Testing: No effect - Balance/Special Test Scores Oswestry Low Back Score: 19 - Goals Goal 1:: I with HEP for back pain Goal Time Frame: 4-6 Weeks Goal 2:: Patient improve posture/body mechanics 80% of the time Goal Time Frame: 4-6 Weeks Goal 3:: Patient to improve lumbar ROM function of recovery for housework's tasks Goal Time Frame: 4-6 Weeks Goal 4:: Patient to improve back owestry by 5 points to improve QOL/function Goal Time Frame: 4-6 Weeks Goal 5:: Patient to demonstrate 50% improvement of decrease radiculopathy to improve function Goal Time Frame: 4-6 Weeks - Rehabilitation Potential Physical Therapy Diagnosis: This patient has possible lateral stenosis with symptoms worse with standing affecting job demands ,housework tasks as well as position amd movement tests thus will benefit from skilled PT. Rehabilitation Potential: Good - Anticipated Interventions Patient/Client Instruction: Educate patient on: Condition, Plan of Care For the Purpose of:: To decrease pain, To increase ROM, To improve muscle performance and motor function, To increase tolerance to activity/condition/position, To improve performance and independence with ADL's, To improve ability of physical actions for home/community/work/leisure, To improve health of tissue, To decrease soft tissue restriction, To increase flexibility/ROM, To prevent re-injury Therapeutic Exercise to Include: Strength training, Endurance training, Balance training, Body mechanics, Postural training, Flexibilty training, Dynamic Lumbar Stabilization For the Purpose of:: To decrease pain, To increase ROM, To improve muscle performance and motor function, To improve ability to perform ADL's, To increase tolerance to activity/condition/position, To improve ability of physical actions for home/community/work/leisure, To improve gait and locomotor functions, To improve health of tissue, To decrease soft tissue restriction, To increase flexibility/ROM TENS: Yes IF ES: Yes Cryotherapy (ice pack, ice massage): Yes Thermo therapy (hot pack): Yes Ultrasound (thermal/non thermal): Yes For the Purpose of:: To decrease pain, To increase ROM, To improve nutrient delivery to tissue, To increase oxygenation perfusion, To improve muscle performance and motor function, To improve health of tissue, To decrease soft tissue restriction, To increase flexibility/ROM Thank you for the opportunity to evaluate your patient. For Medicare and Medicare HMO plans, please review the plan of care and approve it. It will need to be FAXED BACK to us at [phone] for Medicare purposes. For Medicare only, by signing this I certify the plan of care. Please let me know if there are questions or concerns regarding this plan of care. Physician Signature: Date:
--- NOTE | 2021-04-09 16:10 | HP.PTDCSUM ---
It has been my pleasure to treat OLGA LOZANO referred by Dr. Rj Monzon MD, with the diagnosis of LUMBAR RADICULOPATHY for a total of 9 visit(s). Discharge Date: 04/09/21 Please see the following information for a summary of their discharge status. Subjective: Doing well ..progressing well ready for d/c Right Back Pain Intensity (Out of 10): 0 Left Lower Extremity Pain Intensity (Out of 10): 0 % Improvement: 75 Objective/Function: POSTURE: WFL. GAIT : RECIPROCAL PATTERN. MMT: QUADS/HAMS 4/5,HIP FLEXION 4/5 ,ANKLE 5/5. LUMBAR ROM : FLEXION MIN LOSS ,EXTENSION MIN LOSS ,SIDE GLIDES MIN LOSS Goal 1:: I with HEP for back pain Goal Progress: Goal Met Goal 2:: Patient improve posture/body mechanics 80% of the time Goal Progress: Goal Met Goal 3:: Patient to improve lumbar ROM function of recovery for housework's tasks Goal Progress: Goal Met Goal 4:: Patient to improve back owestry by 5 points to improve QOL/function Goal Progress: Goal Met Goal 5:: Patient to demonstrate 50% improvement of decrease radiculopathy to improve function Goal Progress: Goal Met Plan: D/C Discharge Comments: HEP If there are questions or concerns regarding this patient's physical therapy, please feel free to call me at [phone]. Thank you for the referral of this patient. Sincerely, Tito Gomes, PT, Cert MDT, OCS Balance/Gait/Functional tests - Balance/Special Test Scores Oswestry Low Back Score: 0
== END 2021-04-09 19:00 | disposition home or self-care (01) ==
LOC: PT 15:30
PROVIDERS: PCP Family Medicine; Referring Provider Family Medicine; Visit Provider Family Medicine
DX: M54.16 Radiculopathy, lumbar region (principal)
CPT/HCPCS: 97110; 97162

== ENCOUNTER 2021-05-24 08:49 | Outpatient (CLI) | payer MEDICARE, SELFPAY ==
[2021-05-24 10:10] LABS: Hematocrit 43.1 % (40-54); Hemoglobin 15.2 g/dL (13.0-16.5); Mean Corp Hgb Conc 35.3 g/dL (32-36); Mean Corpuscular Hgb 33.4 pg (27.0-32.0); Mean Corpuscular Volume 94.7 fL (80-94); Mean Platelet Vol. 9.7 fl (6.2-12.0); Platelet Count 240 K/mm3 (150-450); RBC Distribution Width CV 11.3 % (11.6-14.6); RBC Distribution Width SD 39.3 fl (35.1-43.9); Red Blood Count 4.55 M/mm3 (4.6-6.2); White Blood Count 5.4 K/mm3 (4.4-11.0)
[2021-05-24 10:40] LABS: ALB/GLOB Ratio 0.9 RATIO (0.9-2.4); AST(SGOT) 29 U/L (15-37); Alanine Aminotransfer ALT/SGPT 43 U/L (16-61); Albumin, Serum 3.4 g/dL (3.2-5.0); Alkaline Phosphatase 62 U/L (45-117); Anion Gap 3 (5-15); BUN 18 mg/dL (7-18); BUN/Creat Ratio 15.3 RATIO (10-20); Calcium,Total 8.7 mg/dL (8.5-10.1); Chloride 109 mmol/L (98-107); Creatinine, Serum 1.18 mg/dL (0.70-1.30); EST Glomerular Filtration Rate 65 mL/min (>60); Est Glom Filt Rate - Afr Amer 78 mL/min (>60); Globulin 3.8 g/dL (2.2-4.2); Glucose 92 mg/dL (74-106); Potassium 4.2 mmol/L (3.5-5.1); Protein, Total 7.2 g/dL (6.4-8.2); Sodium Level 141 mmol/L (136-145)
== END 2021-05-24 23:59 | disposition home or self-care (01) ==
LOC: MFPLAB 08:50
PROVIDERS: PCP Family Medicine; Referring Provider Family Medicine; Visit Provider Nurse Practitioner Family
DX: G40.909 Epilepsy, unspecified, not intractable, without status epilepticus (principal); Z79.899 Other long term (current) drug therapy
CPT/HCPCS: 36415; 80053; 85027

== ENCOUNTER → 2021-10-05 | Outpatient (CLI) | payer MEDICARE, SELFPAY ==
--- NOTE | 2021-10-05 15:37 | RAD_ITS ---
STUDY: X-RAY CHEST REASON FOR EXAM: Male, 70 years old. Expiratory wheezing. TECHNIQUE: PA and lateral COMPARISON: None. FINDINGS: LUNGS: No evidence of pneumonia, pulmonary edema, pneumothorax or pleural effusion. Moderately lucent and hyperinflated lungs. MEDIASTINUM, EZEQUIEL: Cardiac silhouette, hilar and mediastinal contours with no acute findings. Atherosclerosis and tortuosity of the thoracic aorta. BONES: Degenerative osseous changes with no acute osseous abnormality. UPPER ABDOMEN: Not well evaluated on this view. RAD/Chest PA and Lateral IMPRESSION: No acute findings. Underlying COPD/emphysema. Electronically Signed: Giuseppe Villatoro MD at 5:42 EDT ,
== END | disposition home or self-care (01) ==
LOC: MTRAD 15:37
PROVIDERS: PCP Family Medicine; Referring Provider Nurse Practitioner Family; Visit Provider Nurse Practitioner Family
DX: R06.2 Wheezing (principal)
CPT/HCPCS: 71046

== ENCOUNTER → 2022-03-31 | Outpatient (CLI) | payer MEDICARE, SELFPAY ==
[2022-03-31 10:12] LABS: Hemoglobin 14.6 g/dL (13.0-16.5); Mean Corp Hgb Conc 34.8 g/dL (32-36); Mean Corpuscular Hgb 33.6 pg (27.0-32.0); Mean Corpuscular Volume 96.6 fL (80-94); Mean Platelet Vol. 9.3 fl (6.2-12.0); Platelet Count 281 K/mm3 (150-450); RBC Distribution Width CV 11.5 % (11.6-14.6); RBC Distribution Width SD 40.7 fl (35.1-43.9); Red Blood Count 4.35 M/mm3 (4.6-6.2); White Blood Count 4.5 K/mm3 (4.4-11.0)
[2022-03-31 10:25] LABS: ALB/GLOB Ratio 0.8 RATIO (0.9-2.4); AST(SGOT) 19 U/L (15-37); Alanine Aminotransfer ALT/SGPT 31 U/L (16-61); Albumin, Serum 3.2 g/dL (3.2-5.0); Alkaline Phosphatase 56 U/L (45-117); Anion Gap 6 (5-15); BUN 23 mg/dL (7-18); BUN/Creat Ratio 19.2 RATIO (10-20); Calcium,Total 8.8 mg/dL (8.5-10.1); Chloride 109 mmol/L (98-107); EST Glomerular Filtration Rate 63 mL/min (>60); Est Glom Filt Rate - Afr Amer 77 mL/min (>60); Globulin 3.9 g/dL (2.2-4.2); Glucose 95 mg/dL (74-106); Potassium 4.3 mmol/L (3.5-5.1); Protein, Total 7.1 g/dL (6.4-8.2); Sodium Level 143 mmol/L (136-145)
[2022-03-31 10:27] LABS: Valproic Acid (Depakene) Level 81 ug/mL (50-100)
== END | disposition home or self-care (01) ==
LOC: MFPLAB 08:02 → MTLAB 08:18
PROVIDERS: PCP Family Medicine; Referring Provider Psychiatry & Neurology Neurology; Visit Provider Psychiatry & Neurology Neurology
DX: G40.909 Epilepsy, unspecified, not intractable, without status epilepticus (principal)
CPT/HCPCS: 36415; 80053; 80164; 82140; 85027

== ENCOUNTER → 2022-04-05 | Outpatient (CLI) | payer MEDICARE, SELFPAY ==
[2022-04-05 10:41] LABS: Cholesterol 210 mg/dL (200); High Density Lipoprotein 50 mg/dL; T4 Free Direct 0.77 ng/dL (0.76-1.46); Triglycerides 123 mg/dL; Very Low Density Lipoprotein 25 mg/dL (5-40)
== END | disposition home or self-care (01) ==
LOC: MFPLAB 08:35
PROVIDERS: PCP Family Medicine; Referring Provider Family Medicine; Visit Provider Family Medicine
DX: E78.5 Hyperlipidemia, unspecified (principal); R79.89 Other specified abnormal findings of blood chemistry
CPT/HCPCS: 36415; 80061; 84439; 84443

== ENCOUNTER → 2022-10-12 | Outpatient (CLI) | payer MEDICARE, SELFPAY ==
[2022-10-12 12:21] LABS: Absolute Neutrophil Count 3.1 X10^3/uL (2.0-7.7); Basophil# 0.03 X10^3/uL; Basophil% 0.6 % (0-1); Eosinophil# 0.02 X10^3/uL; Eosinophils% 0.4 % (0-5); Hematocrit 43.6 % (40-54); Hemoglobin 14.7 g/dL (13.0-16.5); Lymphocyte % 28.2 % (19-41); Mean Corp Hgb Conc 33.7 g/dL (32-36); Mean Corpuscular Hgb 33.2 pg (27.0-32.0); Mean Corpuscular Volume 98.4 fL (80-94); Mean Platelet Vol. 9.8 fl (6.2-12.0); Monocyte# 0.37 X10^3/uL; Monocyte% 7.5 % (0-10); NRBC Flagged by Analyzer 0 % (0-5); Neutrophil # 3.12 X10^3/uL (2.7-7.7); Neutrophil % 62.9 % (47-70); Platelet Count 217 K/mm3 (150-450); RBC Distribution Width CV 11.9 % (11.6-14.6); RBC Distribution Width SD 42.9 fl (35.1-43.9); Red Blood Count 4.43 M/mm3 (4.6-6.2)
[2022-10-12 13:06] LABS: ALB/GLOB Ratio 0.9 RATIO (0.9-2.4); AST(SGOT) 41 U/L (15-37); Alanine Aminotransfer ALT/SGPT 74 U/L (16-61); Albumin, Serum 3.4 g/dL (3.2-5.0); Alkaline Phosphatase 62 U/L (45-117); Anion Gap 4 (5-15); BUN 24 mg/dL (7-18); BUN/Creat Ratio 20.5 RATIO (10-20); Calcium,Total 8.7 mg/dL (8.5-10.1); Chloride 108 mmol/L (98-107); Cholesterol 193 mg/dL (200); Creatinine, Serum 1.17 mg/dL (0.70-1.30); EST Glomerular Filtration Rate 65 mL/min (>60); Est Glom Filt Rate - Afr Amer 79 mL/min (>60); Globulin 3.9 g/dL (2.2-4.2); Glucose 85 mg/dL (74-106); High Density Lipoprotein 61 mg/dL; PSA,Total - Annual Screen 1.34 ng/mL (0.00-4.00); Potassium 4.4 mmol/L (3.5-5.1); Protein, Total 7.3 g/dL (6.4-8.2); Sodium Level 139 mmol/L (136-145); Triglycerides 102 mg/dL; Very Low Density Lipoprotein 20 mg/dL (5-40)
[2022-10-13 19:35] LABS: Hepatitis B Surface Antibody Non-Reactive; Hepatitis B Surface Antigen Non-Reactive (Nonreactive); Hepatitis C Antibody Non-Reactive (Nonreactive)
[2022-10-20 08:12] LABS: Hepatitis B Core AB IgM Negative (Negative)
== END | disposition home or self-care (01) ==
LOC: MFPLAB 11:07
PROVIDERS: PCP Family Medicine; Visit Provider Family Medicine
DX: R79.89 Other specified abnormal findings of blood chemistry (principal); Z12.5 Encounter for screening for malignant neoplasm of prostate; E78.5 Hyperlipidemia, unspecified
CPT/HCPCS: 36415; 80053; 80061; 84153; 85025; 86705; 86706; 86803; 87340; G0103

== ENCOUNTER 2023-01-13 08:39 | Day surgery (SDC) | payer MEDICARE, SELFPAY ==
--- NOTE | 2023-01-11 | IMM_PTH ---
PATIENT: OLGA LOZANO LOC: EN U#:[id number] AGE/SX: 72/M ROOM: RE01/13/[address]: Dr. Zeb Vaughn MD : 1950 BED: DIS: 01/13/2023 SPEC #: [id number] RECD: 01/13/23 13:06 STATUS: BENNTET JENAE #: [id number] RACHEL: 01/11/23 00:[address]: Zeb Vaughn DEPT: IMMUNOHISTOCHEMISTRY RECD BY: Erin Fontaine ENTERED: 01/13/23 13:07 SP TYPE: IMMUNO OTHR DR: Dr. Rj Monzon MD Tissues: A - Stomach, NOS Procedures: H Pylori (initial) PHYSICIAN & INSTITUTION [place] [id number] SPECIMEN INFORMATION: Tissue Source: A - Antrum biopsy Clinical Info: History of Aparicio's esophagus Specimen Number: [id number] CPT code: 01698 METHODOLOGY: Deparaffinized sections of prefer/formalin-fixed tissue or PAP/DQ stained slides are incubated with monoclonal/polyclonal antibodies/oligonucleotide probes. Localization is made via biotin free immunoperoxidase method. Appropriate controls are performed and reacted as expected. Results on target cell population are indicated in the following table: RESULTS: ANTIBODY / CLONE RESULT Block A H Pylori (polyclonal) negative These tests were developed and their performance characteristics determined by [facility]. They may not have been cleared or approved by the U.S. Food and Drug Administration. The FDA has determined that such clearance or approval is not necessary. The above immunohistochemical/dualISH markers are ordered and reviewed by the Pathologist. INTERPRETATION: A. Antrum, biopsy: Negative for Helicobacter pylori organisms. SJ:enrrique 01/16/2023
[2023-01-13] VITALS (7 sets, daily range): BP systolic 100–163; BP diastolic 67–85; PULSE 64–83; RESP 16; TEMP 35.9–36.1; O2SAT 95–100; BMI 27.2
[2023-01-13] MEDS: Lactated Ringers 1,000 ML 15 ML IV (09:04)
--- NOTE | 2023-01-13 09:11 | PCM.HP.BLA ---
History and Physical Date of Admission: 01/13/23 Chief Complaint: Allergies No Known Allergies Allergy (Verified 09/21/22 11:08) [facility] Medical History (Updated 12/02/22 @ 05:[address] Zeb Vaughn MD) Back pain Gastroesophageal reflux disease GERD (gastroesophageal reflux disease) Hemorrhoid History of Aparicio's esophagus History of hiatal hernia History of steroid therapy Injury of head and neck Long-term use of high-risk medication Non-smoker Seizure Wears glasses Wears hearing aid Surgical History History of colonoscopy History of esophagogastroduodenoscopy (EGD) (~2009) Family History Mother Diabetes Thyroid disorderFather CVA (cerebral vascular accident) CancerGrandfather Heart diseaseBrother Cancer Social History Smoking Status: Never smoker Electronic Cigarette Use: not used second hand exposure: No alcohol intake: never substance use type: does not use HPI HPI HPI: 71-year-old gentleman. I previously assisted him on October 23, 2020 B. Polyps were found in the cecum and the mid ascending colon proximal transverse colon in the mid sigmoid colon. Pathology demonstrated tubular adenomas at all sites. Because of the number of the polyps and positioning follow-up colonoscopy was recommended at 3 years. It is of note that September 10, 2019 I performed a esophagogastroduodenoscopy with him. Findings clinically suggested Aparicio's esophagus. Small hiatal hernia was noted. Gastritis noted. Pathology showed chronic gastritis and a hyperplastic polyp of the stomach no evidence of intestinal metaplasia at the EG junction and fragments of normal squamous mucosa in the midesophagus. H. pylori was negative. He had a had a previous upper endoscopy performed in [facility] 09, 2009 and which had findings consistent with Aparicio's. He did not want to pursue any additional upper GI work-up at the time of his most recent appointment. The patient's been taking his famotidine twice daily has been asymptomatic. He denies any bright red blood per rectum or melena. He is got no abdominal pain. He eats a good diet and routine exercise. He otherwise enjoys good health. Not on any anticoagulants. Denies history of DVT Exam Const General: cooperative, healthy appearing, comfortable and no acute distress [facility] Head: normal to inspection Eyes General: appearance normal, both eyes and all related structures Neck Neck: normal visual inspection Chest Chest palpation & inspection: normal inspection of the chest Resp Effort & Inspection: normal respiratory effort Auscultation: clear to auscultation bilaterally Cardio Rate: regular rate Rhythm: regular rhythm GI Inspection: normal to inspection Palpation: soft and no hepatosplenomegaly Musc Cervical Spine: normal cervical lordosis Skin General: no rashes or lesions noted Neuro General: patient alert, patient awake and patient oriented x3 Extrem General: no calf tenderness Psych Appearance: grossly normal Assessment and Plan Assessment and Plan (1) History of Aparicio's esophagus: Status: Acute (2) Personal history of colonic polyps: Status: Acute Plan: I recommend the patient a esophagogastroduodenoscopy with again very careful inspection of the EG junction with with likely biopsy. He is aware of technique, benefit, risk, alternatives. He is due for his next colonoscopy 10/2023 unless he were to become symptomatic. I have discussed with the patient possible colonoscopy at 5 years but upon reviewing his previous findings he did have 4 previous polyps and therefore follow-up colonoscopy should be at 3 years which would be October 2023. He has had an opportunity to ask and have questions answered. We will perform the upper endoscopy and then anticipate a colonoscopy at 1 years time. Copy: Dr Rj Vaughn M.D., F.A.C.S I have examined the patient and the H&P has been reviewed. There are no clinical changes since date of exam. Zeb Vaughn M.D., F.A.C.S.
--- NOTE | 2023-01-13 09:45 | EGD_PTH ---
PATIENT: OLGA LOZANO LOC: EN U#:[id number] AGE/SX: 72/M ROOM: RE01/13/[address]: Dr. Zeb Vaughn MD : 1950 BED: DIS: 01/13/2023 SPEC #: [id number] RECD: 01/13/23 10:59 STATUS: BENNETT JENAE #: [id number] RACHEL: 01/13/23 09:[address]: Zeb Vaughn DEPT: SURGICAL PATHOLOGY RECD BY: Barbara Duong ENTERED: 01/13/23 12:21 SP TYPE: EGD BIOPSY OT DR: Dr. Rj Monzon MD Tissues: A - Gastric mucous membrane B - Esophagus, NOS Procedures: Special Stain Group II Surgery Specimen Level IV Alcian Blue/PAS (control) HEADER OPERATION: EGD with biopsies PRE-OP DIAGNOSIS: History of Aparicio's esophagus TISSUE SUBMITTED: A - Antrum biopsy for H. pylori and path, B - Distal esophagus biopsy MICROSCOPIC DIAGNOSIS A. Antrum, biopsy: Mild gastritis. See microscopic description and comment. B. Distal esophagus, biopsy: Fragments of gastroesophageal mucosa with chronic inflammation. Intestinal metaplasia (goblet cell metaplasia) not identified. See comment. SJ:rg 01/16/2023 COMMENT A. The results of immunohistochemistry for Helicobacter pylori will be reported separately ([id number]). B. Alcian blue/PAS stain with matched control is used in the evaluation of the specimen. MICROSCOPIC DESCRIPTION Slides are reviewed. A. The specimen shows fragments of gastric mucosa with chronic inflammatory cell infiltrates in the lamina propria consisting of lymphocytes and plasma cells, consistent with mild chronic gastritis. GROSS DESCRIPTION A - Received in fixative is one container labeled with the patient's name and designated gastric antrum. The specimen consists of one irregular fragment of light lira soft tissue that measures 0.5 x 0.5 x 0.1 cm. The specimen is totally submitted in one cassette. B - Received in fixative is one container labeled with the patient's name and designated distal esophagus. The specimen consists of multiple irregular fragments of light lira soft tissue that in aggregate measure 1.5 x 0.8 x 0.1 cm. The specimen is totally submitted in one cassette. / AM:enrrique 01/13/2023 TC:3 CPT: 59541 x2, 12261
--- NOTE | 2023-01-13 10:00 | OP.CCLET_ITS ---
01/13/2023 Rj Monzon [address] [place] [address] Re : Upper GI endoscopy procedure for Tito Nunze Dear Dr. Monzon This procedure was performed on Friday, January 13, 2023. My impressions and recommendations are as follows: Impressions : - Esophageal mucosal changes secondary to established short-segment Aparicio's disease. Biopsied. - Z-line irregular, 45 cm from the incisors. - Small hiatal hernia. - Erythematous mucosa in the antrum. Biopsied. - Normal examined duodenum. Recommendations : - Discharge patient to home. - Resume previous diet. - Continue present medications. - Telephone my office for pathology results in 1 week. - Repeat upper endoscopy in 3 years for surveillance. My findings are described in the full procedure note, which is enclosed. If I can be of further assistance, please feel free to contact me at Doctor phone number(s): Work: . Sincerely, Zeb Vaughn MD 01/13/2023 9:59:50 AM This report has been signed electronically.
--- NOTE | 2023-01-13 10:00 | OP.EGD_ITS ---
Patient Name: Tito Nunez Procedure Date: 01/13/2023 9:38 AM Date of : 1950 Age: 72 Procedure: Upper GI endoscopy Indications: Surveillance procedure Providers: Zeb Vaughn MD Referring MD: Zeb Vaughn MD Medicines: See the Anesthesia note for documentation of the administered medications Complications: No immediate complications. Procedure: Pre-Anesthesia Assessment: - Prior to the procedure, a History and Physical was performed, and patient medications and allergies were reviewed. The patient's tolerance of previous anesthesia was also reviewed. The risks and benefits of the procedure and the sedation options and risks were discussed with the patient. All questions were answered, and informed consent was obtained. Prior Anticoagulants: The patient has taken no anticoagulant or antiplatelet agents. ASA Grade Assessment: II - A patient with mild systemic disease. After reviewing the risks and benefits, the patient was deemed in satisfactory condition to undergo the procedure. After obtaining informed consent, the endoscope was passed under direct vision. Throughout the procedure, the patient's blood pressure, pulse, and oxygen saturations were monitored continuously. The Endoscope was introduced through the mouth, and advanced to the second part of duodenum. The upper GI endoscopy was accomplished without difficulty. The patient tolerated the procedure well. 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 The maximum longitudinal extent of these mucosal changes was 1 cm in length. Mucosa was biopsied with a cold forceps for histology. The Z-line was irregular and was found 45 cm from the incisors. A small hiatal hernia was present. Diffuse mildly erythematous mucosa without bleeding was found in the gastric antrum. Biopsies were taken with a cold forceps for histology. The examined duodenum was normal. Impression: - Esophageal mucosal changes secondary to established short-segment Aparicio's disease. Biopsied. - Z-line irregular, 45 cm from the incisors. - Small hiatal hernia. - Erythematous mucosa in the antrum. Biopsied. - Normal examined duodenum. Recommendation: - Discharge patient to home. - Resume previous diet. - Continue present medications. - Telephone my office for pathology results in 1 week. - Repeat upper endoscopy in 3 years for surveillance. Procedure Code(s): --- Professional --- 34178, Esophagogastroduodenoscopy, flexible, transoral; with biopsy, single or multiple Diagnosis Code(s): --- Professional --- K22.70, Aparicio's esophagus without dysplasia K22.89, Other specified disease of esophagus K44.9, Diaphragmatic hernia without obstruction or gangrene K31.89, Other diseases of stomach and duodenum CPT copyright 2021 [employer]. All rights reserved. The codes documented in this report are preliminary and upon pharmacist review may be revised to meet current compliance requirements. Zeb Vaughn MD 01/13/2023 9:59:50 AM This report has been signed electronically. Number of Addenda: 0 Note Initiated On: 01/13/2023 9:38 AM
== END 2023-01-13 10:52 | disposition home or self-care (01) ==
LOC: EN 08:43 → AC 08:43
PROVIDERS: PCP Family Medicine; Referring Provider Family Medicine; Visit Provider Surgery
PROC: 0DJ08ZZ Inspection of Upper Intestinal Tract, Via Natural or Artificial Opening Endoscopic (ICD-10-PCS; CPT 43235; principal; 2023-01-13 09:40)
DX: K21.00 Gastro-esophageal reflux disease with esophagitis, without bleeding (principal); K44.9 Diaphragmatic hernia without obstruction or gangrene; Z86.010 Personal history of colon polyps; K22.70 Barrett's esophagus without dysplasia; K29.50 Unspecified chronic gastritis without bleeding; Z87.19 Personal history of other diseases of the digestive system; Z79.899 Other long term (current) drug therapy
CPT/HCPCS: 43239; 88305; 88313; 88342; J7120; J2405

== ENCOUNTER → 2023-04-03 | Outpatient (CLI) | payer MEDICARE, SELFPAY ==
--- OUTSIDE RECORDS SUMMARY | 2023-04-03 08:14 | XMS RPT_ITS | CCD ---
Author Name Unknown Address [address] [place] [address] Organization [facility] Care Team Providers Care Yarn Skeins Examiner Name Role Phone [address] Admitting Unavailable [address] Attending Unavailable [address] Primary Care Unavailable Problems Problem Classification Problem Date Documented Da te Episodic/Chronic Immunizations and screening for infectious disease (4 sources) Encounter for observation for suspected exposure to other biological agents ruled out; Translations: [Contact with and (suspected) exposure to other viral communicable diseases] Onset: 09-29-2019 Episodic Results Test Name Value Interpretation Reference Range Facil ity Encounters Encounter Date Encounter Type Care Provider Facility Start: 11-19-2021 Emergency department patient visit [facility] Start: 09-29-2019 End: 09-29-2019 Patient encounter procedure [address] [facility] Payers Date Payer Category Payer Unknown [id number] Medicare [id number] Summary Purpose Family History No Family History Records FoundNo Family History Records FoundNo Family History Records FoundNo Family History Records Found Advance Directives No Advanced Directives Records FoundNo Advanced Directives Records FoundNo Advanced Directives Records FoundNo Advanced Directives Records Found Additional Source Comments (unrecognized sect ion and content) No Status Records FoundNo Status Records FoundNo Status Records FoundNo Status Records Found INFORMATION SOURCE (unrecogn ized section and content) DATE CREATED AUTHOR AUTHOR'S ORGANIZ ATION 10/05/2019 [facility] DATE CREATED AUTHOR AUTHOR'S ORGANIZ ATION 03/27/2020 [facility] DATE CREATED AUTHOR AUTHOR'S ORGANIZ ATION 11/20/2021 [facility] FOR RECORDS PERTAINING TO PATIENTS WHO ARE OR HAVE BEEN ENROLLED IN A CHEMICAL DEPENDENCY/SUBSTANCEABUSE PROGRAM, SOME INFORMATION MAY BE OMITTED. This clinical summary was aggregated from multiple sources. Caution should be exercised in using it in the provision of clinical care. This summary normalizes information from multiple sources, and as a consequence, information in this document may materially change the coding, format and clinical context of patient data. In addition, data may be omitted in some cases. CLINICAL DECISIONS SHOULD BE BASED ON THE PRIMARY CLINICAL RECORDS. [facility]. provides no warranty or guarantee of the accuracy or completeness of information in this document.
[2023-04-03 10:27] LABS: Hematocrit 43.3 % (40-54); Hemoglobin 14.5 g/dL (13.0-16.5); Mean Corp Hgb Conc 33.5 g/dL (32-36); Mean Corpuscular Hgb 33.2 pg (27.0-32.0); Mean Corpuscular Volume 99.1 fL (80-94); Mean Platelet Vol. 9.6 fl (6.2-12.0); Platelet Count 233 K/mm3 (150-450); RBC Distribution Width CV 11.6 % (11.6-14.6); RBC Distribution Width SD 42.6 fl (35.1-43.9); Red Blood Count 4.37 M/mm3 (4.6-6.2); White Blood Count 4.6 K/mm3 (4.4-11.0)
[2023-04-03 10:51] LABS: Ammonia < 10.0 umol/L (11-32)
[2023-04-03 10:52] LABS: Valproic Acid (Depakene) Level 79 ug/mL (50-100)
[2023-04-03 10:57] LABS: ALB/GLOB Ratio 0.9 RATIO (0.9-2.4); AST(SGOT) 52 U/L (15-37); Alanine Aminotransfer ALT/SGPT 101 U/L (16-61); Albumin, Serum 3.3 g/dL (3.2-5.0); Alkaline Phosphatase 63 U/L (45-117); Anion Gap 3 (5-15); BUN 21 mg/dL (7-18); Calcium,Total 9.1 mg/dL (8.5-10.1); Chloride 109 mmol/L (98-107); EST Glomerular Filtration Rate 53 mL/min (>60); Est Glom Filt Rate - Afr Amer 64 mL/min (>60); Globulin 3.7 g/dL (2.2-4.2); Glucose 96 mg/dL (74-106); Potassium 4.4 mmol/L (3.5-5.1); Sodium Level 141 mmol/L (136-145)
== END | disposition home or self-care (01) ==
PROVIDERS: PCP Family Medicine; Referring Provider Psychiatry & Neurology Neurology; Visit Provider Psychiatry & Neurology Neurology
DX: G40.909 Epilepsy, unspecified, not intractable, without status epilepticus (principal); Z79.899 Other long term (current) drug therapy
CPT/HCPCS: 36415; 80053; 80164; 82140; 85027

== ENCOUNTER → 2023-04-19 | Outpatient (CLI) | payer MEDICARE, SELFPAY ==
--- OUTSIDE RECORDS SUMMARY | 2023-04-19 09:55 | XMS RPT_ITS | CCD ---
Author Name Unknown Address [address] [place] [address] Organization [facility] Care Team Providers Care Supervisor Fabrication Department Name Role Phone [address] Admitting Unavailable [...] Facility Start: 11-19-2021 Emergency department patient visit [facility] Start: 09-29-2019 End: 09-29-2019 Patient encounter procedure [address] [facility] Payers Date Payer Category Payer Unknown [id number] Medicare [id number] Summary Purpose Family History No Family History [...] DATE CREATED AUTHOR AUTHOR'S ORGANIZ ATION 10/05/[address] [facility] DATE CREATED AUTHOR AUTHOR'S ORGANIZ ATION 03/27/2020 [facility] DATE CREATED AUTHOR AUTHOR'S ORGANIZ ATION 11/20/2021 [facility] FOR RECORDS PERTAINING TO PATIENTS WHO [...] BE BASED ON THE PRIMARY CLINICAL RECORDS. [facility] [employer] [facility]. provides no warranty or guarantee of the accuracy or completeness of information in this document.
[2023-04-19 11:12] LABS: AST(SGOT) 51 U/L (15-37); Alanine Aminotransfer ALT/SGPT 93 U/L (16-61); Albumin, Serum 3.1 g/dL (3.2-5.0); Alkaline Phosphatase 65 U/L (45-117); BUN 22 mg/dL (7-18); Creatinine, Serum 1.32 mg/dL (0.70-1.30); EST Glomerular Filtration Rate 57 mL/min (>60); Est Glom Filt Rate - Afr Amer 69 mL/min (>60); Globulin 3.7 g/dL (2.2-4.2); Protein, Total 6.8 g/dL (6.4-8.2)
== END | disposition home or self-care (01) ==
PROVIDERS: PCP Family Medicine; Referring Provider Psychiatry & Neurology Neurology; Visit Provider Psychiatry & Neurology Neurology
DX: R74.01 Elevation of levels of liver transaminase levels (principal); N28.9 Disorder of kidney and ureter, unspecified
CPT/HCPCS: 36415; 80076; 82565; 84520

== ENCOUNTER → 2023-04-20 | Outpatient (CLI) | payer MEDICARE, SELFPAY ==
[2023-04-20 13:34] LABS: AST(SGOT) 45 U/L (15-37); Alanine Aminotransfer ALT/SGPT 92 U/L (16-61); Albumin, Serum 3.3 g/dL (3.2-5.0); Alkaline Phosphatase 70 U/L (45-117); Bilirubin, Direct 0.19 mg/dL (0.00-0.30); Globulin 3.9 g/dL (2.2-4.2); Protein, Total 7.2 g/dL (6.4-8.2)
[2023-04-21 07:08] LABS: HEPATITIS B SURFACE AG Negative (Negative); Hep C Antibodies Non Reactive (Non Reactive); Hepatitis A IgM Antibody Negative (Negative); Hepatitis B Core AB IgM Negative (Negative)
== END | disposition home or self-care (01) ==
LOC: MTLAB 10:30
PROVIDERS: PCP Family Medicine; Referring Provider Psychiatry & Neurology Neurology; Visit Provider Psychiatry & Neurology Neurology
DX: R74.01 Elevation of levels of liver transaminase levels (principal)
CPT/HCPCS: 36415; 80074; 80076

== ENCOUNTER → 2023-04-28 | Outpatient (CLI) | payer MEDICARE, SELFPAY ==
--- NOTE | 2023-04-28 07:37 | US_ITS ---
STUDY: ABDOMINAL ULTRASOUND - RIGHT UPPER QUADRANT REASON FOR VISIT: Male, 72 years old Elevated liver transaminases TECHNIQUE: Ultrasound evaluation of the right upper quadrant was performed with real-time and static souza-scale imaging. TECHNICAL QUALITY: Adequate. COMPARISON: None. FINDINGS: Liver: The liver measures 17.4 cm. There is increased echogenicity consistent with fatty infiltration. The bile ducts are within normal limits. There is hepatic color flow. The direction of portal flow is hepatopetal. There is a 1.1 cm x 1.5 cm x 1.3 cm septated cyst in the right lobe of the liver. There is also evidence of a 2.1 cm x 2 cm x 1.2 cm cyst in the right lobe. Gallbladder: Normal distended gallbladder. The gallbladder wall measures 2.0 mm. There is a negative sonographic Cedeno''s sign. There is no pericholecystic fluid. There are no gallstones. Common Bile Duct (C.B.D.): The common bile duct measures 3 mm. Pancreas: Normal size of the head, body and tail of the pancreas. There is normal echogenicity of the pancreas. There is no demonstrated pancreatic mass or cyst. Right Kidney: Normal size of the right kidney. The right kidney measures 10.9 cm x 6.5 cm x 6.7 cm. Normal renal cortex. The right cortex measures 1.4 cm. There is a 1.5 cm x 2.2 cm x 1.3 cm right renal cyst. There is no right hydronephrosis. US/Liver IMPRESSION: Hepatic cysts. Right renal cyst. Fatty infiltration of the liver. Electronically Signed: Fritz Givens MD at 13:34 EDT ,
--- OUTSIDE RECORDS SUMMARY | 2023-04-28 07:39 | XMS RPT_ITS | CCD ---
Author Name Unknown Address [address] [place] [address] Organization [facility] Care Team Providers Care Credit Collections Manager Name Role Phone [address] Admitting Unavailable [...] Facility Start: 11-19-2021 Emergency department patient visit [facility] Start: 09-29-2019 End: 09-29-2019 Patient encounter procedure [address] [facility] Payers Date Payer Category Payer Unknown [id number] Medicare [id number] Summary Purpose Family History No Family History [...] DATE CREATED AUTHOR AUTHOR'S ORGANIZ ATION 10/05/2019 [facility] DATE CREATED AUTHOR AUTHOR'S ORGANIZ ATION 03/27/2020 [facility] DATE CREATED AUTHOR AUTHOR'S ORGANIZ ATION 11/20/2021 [facility] FOR RECORDS PERTAINING TO PATIENTS WHO ARE [...] BE BASED ON THE PRIMARY CLINICAL RECORDS. [facility] [employer] [facility]. provides no warranty or guarantee of the accuracy or completeness of information in this document.
== END | disposition home or self-care (01) ==
LOC: US 07:36
PROVIDERS: PCP Family Medicine; Referring Provider Psychiatry & Neurology Neurology; Visit Provider Psychiatry & Neurology Neurology
DX: R74.01 Elevation of levels of liver transaminase levels (principal)
CPT/HCPCS: 76705

== ENCOUNTER → 2023-05-16 | Outpatient (CLI) | payer MEDICARE, SELFPAY ==
[2023-05-16 10:51] LABS: AST(SGOT) 54 U/L (15-37); Alanine Aminotransfer ALT/SGPT 119 U/L (16-61); Albumin, Serum 3.3 g/dL (3.2-5.0); Alkaline Phosphatase 60 U/L (45-117); Bilirubin, Direct 0.25 mg/dL (0.00-0.30); Globulin 3.8 g/dL (2.2-4.2); Protein, Total 7.1 g/dL (6.4-8.2)
== END | disposition home or self-care (01) ==
PROVIDERS: PCP Family Medicine; Referring Provider Psychiatry & Neurology Neurology; Visit Provider Psychiatry & Neurology Neurology
DX: G40.309 Generalized idiopathic epilepsy and epileptic syndromes, not intractable, without status epilepticus (principal); R74.01 Elevation of levels of liver transaminase levels
CPT/HCPCS: 36415; 80076

== ENCOUNTER → 2023-06-19 | Outpatient (CLI) | payer MEDICARE, SELFPAY ==
[2023-06-19 11:03] LABS: AST(SGOT) 37 U/L (15-37); Alanine Aminotransfer ALT/SGPT 66 U/L (16-61); Albumin, Serum 2.9 g/dL (3.2-5.0); Alkaline Phosphatase 55 U/L (45-117); Globulin 3.6 g/dL (2.2-4.2); Protein, Total 6.5 g/dL (6.4-8.2)
== END | disposition home or self-care (01) ==
PROVIDERS: PCP Family Medicine; Referring Provider Psychiatry & Neurology Neurology; Visit Provider Psychiatry & Neurology Neurology
DX: G40.909 Epilepsy, unspecified, not intractable, without status epilepticus (principal)
CPT/HCPCS: 36415; 80076

== ENCOUNTER → 2023-07-27 | Outpatient (CLI) | payer MEDICARE, SELFPAY ==
[2023-07-27 11:12] LABS: Valproic Acid (Depakene) Level 80 ug/mL (50-100)
== END | disposition home or self-care (01) ==
LOC: MTLAB 07:05
PROVIDERS: PCP Family Medicine; Referring Provider Psychiatry & Neurology Neurology; Visit Provider Psychiatry & Neurology Neurology
DX: G40.309 Generalized idiopathic epilepsy and epileptic syndromes, not intractable, without status epilepticus (principal)
CPT/HCPCS: 36415; 80164

== ENCOUNTER → 2023-09-12 | Outpatient (CLI) | payer MEDICARE, SELFPAY ==
[2023-09-12 12:34] LABS: Absolute Neutrophil Count 2.6 X10^3/uL (2.0-7.7); Basophil# 0.02 X10^3/uL; Basophil% 0.4 % (0-1); Eosinophil# 0.02 X10^3/uL; Eosinophils% 0.4 % (0-5); Hematocrit 42.3 % (40-54); Hemoglobin 14.3 g/dL (13.0-16.5); Lymphocyte % 33.6 % (19-41); Mean Corp Hgb Conc 33.8 g/dL (32-36); Mean Corpuscular Hgb 32.2 pg (27.0-32.0); Mean Corpuscular Volume 95.3 fL (80-94); Mean Platelet Vol. 10.8 fl (6.2-12.0); Monocyte# 0.36 X10^3/uL; Monocyte% 8.1 % (0-10); NRBC Flagged by Analyzer 0 % (0-5); Neutrophil # 2.55 X10^3/uL (2.7-7.7); Neutrophil % 57.1 % (47-70); Platelet Count 214 K/mm3 (150-450); RBC Distribution Width CV 11.5 % (11.6-14.6); Red Blood Count 4.44 M/mm3 (4.6-6.2); White Blood Count 4.5 K/mm3 (4.4-11.0)
[2023-09-12 12:56] LABS: ALB/GLOB Ratio 0.8 RATIO (0.9-2.4); AST(SGOT) 58 U/L (15-37); Alanine Aminotransfer ALT/SGPT 83 U/L (16-61); Albumin, Serum 3.1 g/dL (3.2-5.0); Alkaline Phosphatase 57 U/L (45-117); Anion Gap 4 (5-15); BUN 21 mg/dL (7-18); BUN/Creat Ratio 14.6 RATIO (10-20); Chloride 112 mmol/L (98-107); Cholesterol 180 mg/dL (200); Creatinine, Serum 1.44 mg/dL (0.70-1.30); EST Glomerular Filtration Rate 51 mL/min (>60); Est Glom Filt Rate - Afr Amer 62 mL/min (>60); Globulin 3.8 g/dL (2.2-4.2); Glucose 90 mg/dL (74-106); High Density Lipoprotein 49 mg/dL; Potassium 4.7 mmol/L (3.5-5.1); Protein, Total 6.9 g/dL (6.4-8.2); Sodium Level 143 mmol/L (136-145); Triglycerides 105 mg/dL; Very Low Density Lipoprotein 21 mg/dL (5-40)
== END | disposition home or self-care (01) ==
LOC: MFPLAB 10:30
PROVIDERS: PCP Family Medicine; Visit Provider Family Medicine
DX: E78.5 Hyperlipidemia, unspecified (principal)
CPT/HCPCS: 36415; 80053; 80061; 85025

== ENCOUNTER 2023-11-09 07:48 | Day surgery (SDC) | payer MEDICARE, SELFPAY ==
[2023-11-09] VITALS (8 sets, daily range): BP systolic 74–140; BP diastolic 59–89; PULSE 61–75; RESP 16–18; TEMP 36.1–36.9; O2SAT 97–100; BMI 26.1
--- NOTE | 2023-11-09 | COLBX_PTH ---
PATIENT: OLGA LOZANO LOC: EN U#:[id number] AGE/SX: 72/M ROOM: RE11/09/[address]: Dr. Byron Dalal MD : 1950 BED: DIS: 11/09/2023 SPEC #: [id number] RECD: 11/09/23 13:44 STATUS: BENNETT RESilke #: [id number] RACHEL: 11/09/23 00:[address]: Byron Dalal DEPT: SURGICAL PATHOLOGY RECD BY: Vince Diaz ENTERED: 11/09/23 13:45 SP TYPE: COLON BX OTHR DR: Dr. Rj Monzon MD Tissues: Cecum, NOS Procedures: Surgery Specimen Level IV HEADER OPERATION: Colonoscopy with polypectomy PRE-OP DIAGNOSIS: Personal history of colonic polyps TISSUE SUBMITTED: Cecum polyp MICROSCOPIC DIAGNOSIS Cecal polyp, biopsy: Fragments of tubular adenoma. AM. 11/10/2023 MICROSCOPIC DESCRIPTION Slides are reviewed. GROSS DESCRIPTION Received in fixative is one container labeled with the patient's name and designated Cecum polyp. The specimen consists of a pink-red polyp measuring 1.5 x 1.0 x 0.8 cm. The presumed base is inked. The polyp is serially sectioned. Also present in the container are multiple pieces of lira soft tissue measuring in aggregate 0.3 x 0.1 x <0.1cm. The entire specimen is submitted in one cassette. 11/09/2023 TC:1 CPT:32305
[2023-11-09] MEDS: Lactated Ringers 1,000 ML 15 ML IV (08:12)
--- NOTE | 2023-11-09 08:13 | PRE.ANES_ITS ---
ASA Classification* ASA Classification ASA Classification: 3 Assessment & Plan Anesthesia* Anesthesia Assessment Anesthesia Assessment: Discussed sedation and/or anesthesia options, risks, benefits, and alternatives with patient/parents/legal guardian/POA. Questions invited. The patient/parents/legal guardian/POA seems to understand and agrees to proceed with anesthesia plan. Reviewed the physical assessment, medical history, allergy history and patient home medications list prior to surgery/procedure/anesthetic and documented any changes. Performed airway and anesthesia risk assessments. Anesthesia Type Anesthesia Type: MAC (see written pre anesthesia record for full assessment) Anesthesia Focused Assessment* Airway Assessment Mouth opens: >3 cm Mallampati Score: II Focused Labs Anesthesia Preop lab: CBC WBC 4.5 K/mm3 (4.4-11.0) 09/12/23 10:30 RBC 4.44 M/mm3 (4.6-6.2) L 09/12/23 10:30 Hgb 14.3 g/dL (13.0-16.5) 09/12/23 10:30 Hct 42.3 % (40-54) 09/12/23 10:30 Plt Count 214 K/mm3 (150-450) 09/12/23 10:30 CHEMISTRY Potassium 4.7 mmol/L (3.5-5.1) 09/12/23 10:30 Sodium 143 mmol/L (136-145) 09/12/23 10:30 BUN 21 mg/dL (7-18) H 09/12/23 10:30 Creatinine 1.44 mg/dL (0.70-1.30) H 09/12/23 10:30 Glucose 90 mg/dL (74-106) 09/12/23 10:30 TSH 2.90 uIU/mL (0.358-3.74) 04/05/22 08:36 COAG Pre-Assessment Diagnosis/Proposed Procedure Planned Operative Procedure(s): COLONOSCOPY Anesthesia History 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 When Was Last Pacemaker Check QUESTION #4 FULL TEXT: You/Your Family Experience fever (hyperthermia) with Anesthesia Last Oral Intake Last Oral intake: Last Oral Intake NPO since Meds taken in AM with sips of water? Meds patient instructed to take am of surgery PONV PONV - soft metals hand engraver: PONV - soft metals hand engraver Female No 11/06/23 14:35 HX of Motion Sickness No 11/06/23 14:35 HX of N/V After Surgery No 11/06/23 14:35 Non-Smoker Yes 11/06/23 14:35 Duration of Surgery greater No 11/06/23 14:35 than 60 minutes Number of Risk Factors 1 11/06/23 14:35 PONV Score Low Risk 11/06/23 14:35 Height & Weight Height & Weight: Anesthesia: Height & Weight Height 5 ft 7 in 09/25/23 13:51 Respiratory Assessment Respiratory Assessment - soft metals hand engraver: Respiratory Tract Infection Hx - soft metals hand engraver Hx Respiratory Tract Infection No 11/06/23 14:35 STOP Sleep Apnea STOP Sleep Apnea - soft metals hand engraver: STOP Sleep Apnea - soft metals hand engraver Hx Hypertension No 11/06/23 14:35 Hx Sleep Apnea No 11/06/23 14:35 CPAP BIPAP Do you snore loudly (louder No 11/06/23 14:35 than talking or can be heard Do you often feel tired/ No 11/06/23 14:35 fatigued/ sleepy during daytime? Has anyone observed you stop No 11/06/23 14:35 breathing during sleep? STOP Results Negative 11/06/23 14:35 QUESTION #5 FULL TEXT : Do you snore loudly (louder than talking or can be heard through closed doors)? 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 Specify any problems Hx of Preganancy in last 3 N/A 11/06/23 14:35 Months Nurse Filling Out Transfusion [facility] 11/06/23 14:35 & Questions: Date: 11/06/23 11/06/23 14:35 Time: 14:42 11/06/23 14:35 Patient unable to answer at this time (ie. confused, unrespo /Reproduction History /Reproductive History - soft metals hand engraver: /Reproductive Hx- soft metals hand engraver Hx Now Gestational Age (in weeks): EDC: Hx Hx Para Hx Section SAB Active Medications Active Medications: Current Medications Generic Name Dose Route Start Last Admin Trade Name Freq PRN Reason Stop Dose Admin Lactated Ringer's 1,000 mls @ 15 mls/hr 11/09/23 08:00 IV .Q48H EPIFANIO PFSH Medical History Fatty liver History of renal disease High cholesterol Leg cramps Seizures Gastric reflux Long-term use of high-risk medication Wears hearing aid Wears glasses Back pain Injury of head and neck History of hiatal hernia Non-smoker History of Aparicio's esophagus Gastroesophageal reflux disease Seizure Hemorrhoid GERD (gastroesophageal reflux disease) Home Medications ?Medication ?Instructions ?Recorded ?Last Taken ?Type famotidine 20 mg tablet (Pepcid) 20 mg PO Q12H 05/26/20 11/09/23 History divalproex 250 mg tablet,extended 250 mg PO .QID 11/06/23 11/09/23 History release 24 hr Allergy/AdvReac Type Severity Reaction Status Date / Time No Known Allergies Allergy Verified 11/09/23 08:07 Family History Mother Diabetes Thyroid disorder Father CVA (cerebral vascular accident) Cancer Grandfather Heart disease Brother Cancer Surgical History History of colonoscopy History of esophagogastroduodenoscopy (EGD) (~2009) Social History household members: spouse current occupational status: retired Smoking Status: Never smoker Electronic Cigarette Use: not used second hand exposure: No alcohol intake: never substance use type: does not use Review of Systems (Anesthesia) ROS Narrative System reviewed and no additional complaints, except as documented.
--- NOTE | 2023-11-09 09:18 | HP.PCM_ITS ---
HPI - General HPI Narrative OLGA LOZANO, is a 72 M who presents for screening colonoscopy. His last colonoscopy was 3 years ago and polyps were removed. He denies abdominal pain or blood in stool. No family history of colon cancer. [facility] Medical History Fatty liver History of renal disease High cholesterol Leg cramps Seizures Gastric reflux Long-term use of high-risk medication Wears hearing aid Wears glasses Back pain Injury of head and neck History of hiatal hernia Non-smoker History of Aparicio's esophagus Gastroesophageal reflux disease Seizure Hemorrhoid GERD (gastroesophageal reflux disease) Home Medications ?Medication ?Instructions ?Recorded ?Last Taken ?Type famotidine 20 mg tablet (Pepcid) 20 mg PO Q12H 05/26/20 11/09/23 History divalproex 250 mg tablet,extended 250 mg PO .QID 11/06/23 11/09/23 History release 24 hr Allergy/AdvReac Type Severity Reaction Status Date / Time No Known Allergies Allergy Verified 11/09/23 08:07 Family History Mother Diabetes Thyroid disorder Father CVA (cerebral vascular accident) Cancer Grandfather Heart disease Brother Cancer Surgical History History of colonoscopy History of esophagogastroduodenoscopy (EGD) (~2009) Social History household members: spouse current occupational status: retired Smoking Status: Never smoker Electronic Cigarette Use: not used second hand exposure: No alcohol intake: never substance use type: does not use Past Medical/Surgical History Planned Operation Planned Operative Procedure(s): COLONOSCOPY Previous Hospitalizations/Surgeries HX Hospitalizations: No Any Problems With Anesthesia: No You/Your Family Experience Fever (Hyperthermia) With Anes: No Cholinesterase deficiency: No Cardiovascular Hx Heart Attack: No Hx Hypertension: No Respiratory Hx Chronic Obstructive Pulmonary Disease (COPD): No Hx Sleep Apnea: No Hx Respiratory Tract Infection/Cold (presently): No Do You Snore Loudly (louder than talking or can be heard): No Do You Often Feel Tired/ Fatigued/ Sleepy Dring Daytime?: No Has Anyone Observed You Stop Breathing During Sleep?: No Result (for STOP score): Negative Hx Smoking: No Smoking Status: Never smoker Neurological Hx Seizures: No Hx Multiple Sclerosis: No Does patient have nerve stimulator: No Blood Disorder Hx Anemia: No Genitourinary Hx Dialysis: No Musculoskeletal Hx Arthritis: No Hx Rheumatoid Arthritis: No Endocrine Hx Diabetes: No Thyroid Disease: No Psycho/Social Hx Depression: No Hx Dementia: No Miscellaneous Hx Cancer: No Recent Exposure to Contagious Disease: No Allergies No Known Allergies Allergy (Verified 11/09/23 08:07) Discharge Is Pt Admitted From a Retirement, or a Skilled Nursing: No Who Could Help: After D/C, Where Do you Plan to Go: Return Home Vital Signs Vital Signs Vital Signs: 11/09/23 08:13 11/09/23 08:13 Temperature 97.2 F L Temperature Source Temporal Pulse Rate 72 Respiratory Rate 18 Respiratory Pattern Normal Blood Pressure 140/89 H Blood Pressure Mean 106 Blood Pressure Source Monitor Blood Pressure Position Semi-Fowlers Blood Pressure Location Right Arm Pulse Ox 97 Oxygen Delivery Method Room Air Weight Weight: 166 lb 12.8 oz Body Mass Index (BMI) 26.1 Physical Exam Const alert and oriented x3 HEENT normocephalic Eyes PERRL Resp normal respiratory effort and normal air movement Cardio regular rate and regular rhythm GI soft to palpation, non-tender and non-distended Extremity normal to inspection Assessment & Plan Assessment/Plan (1) Personal history of colonic polyps: PLAN: Patient requires surveillance colonoscopy for history of polyps 3 years ago. I explained endoscopy in detail to the patient. I explained the risks including but not limited to stroke or heart attack with anesthesia, perforation of the GI tract, bleeding, infection. I explained that any of these could necessitate further emergency surgery. The patient understands and all questions were answered sufficiently. The patient wishes to proceed with procedure. Byron Dalal MD Pager: [facility] [address] [place] [address], [address] [place] [address] Office: Surgery Risks - Colonoscopy Risks Include but are not Limited To: Risks include but are not limited to: Bleeding, perforation requiring further surgery, inability to complete colonoscopy requiring barium enema.
--- NOTE | 2023-11-09 09:45 | OP.COLON_ITS ---
Patient Name: Tito Nunez Procedure Date: 11/09/2023 9:19 AM Date of : 1950 Age: 72 Procedure: Colonoscopy Indications: High risk colon cancer surveillance: Personal history of colonic polyps Providers: Byron Dalal MD Referring MD: Rj Monzon Medicines: Propofol per Anesthesia Patient Profile: This is a 72 year old male. Refer to note in patient chart for documentation of history and physical. Last Colonoscopy: 3 years ago. Complications: No immediate complications. Estimated blood loss: Minimal. Procedure: Pre-Anesthesia Assessment: - Prior to the procedure, a History and Physical was performed, and patient medications and allergies were reviewed. The patient's tolerance of previous anesthesia was also reviewed. The risks and benefits of the procedure and the sedation options and risks were discussed with the patient. All questions were answered, and informed consent was obtained. Prior Anticoagulants: The patient has taken no anticoagulant or antiplatelet agents. After reviewing the risks and benefits, the patient was deemed in satisfactory condition to undergo the procedure. After I obtained informed consent, the scope was passed under direct vision. Throughout the procedure, the patient's blood pressure, pulse, and oxygen saturations were monitored continuously. The Colonoscope was introduced through the anus and advanced to the cecum, identified by appendiceal orifice and ileocecal valve. The colonoscopy was performed without difficulty. The patient tolerated the procedure well. The quality of the bowel preparation was good. The ileocecal valve, appendiceal orifice, and rectum were photographed. Scope In: 9:26:05 AM Scope Withdrawal Time 0 hours 8 minutes 12 seconds Scope Out: 9:40:08 AM Total Procedure Duration Time 0 hours 14 minutes 3 seconds Findings: A large polyp was found in the cecum. The polyp was removed with a hot snare. Resection and retrieval were complete. The exam was otherwise without abnormality on direct and retroflexion views. Impression: - One large polyp in the cecum, removed with a hot snare. Resected and retrieved. - The examination was otherwise normal on direct and retroflexion views. Recommendation: - Discharge patient to home. - Resume previous diet. - Continue present medications. - Await pathology results. - Repeat colonoscopy in 3 years for surveillance. Procedure Code(s): --- Professional --- 75922, Colonoscopy, flexible; with removal of tumor(s), polyp(s), or other lesion(s) by snare technique Diagnosis Code(s): --- Professional --- Z86.010, Personal history of colonic polyps D12.0, Benign neoplasm of cecum CPT copyright 2021 [employer]. All rights reserved. The codes documented in this report are preliminary and upon finish sander review may be revised to meet current compliance requirements. Byron Dalal MD 11/09/2023 9:44:39 AM This report has been signed electronically. Number of Addenda: 0 Note Initiated On: 11/09/2023 9:19 AM
--- NOTE | 2023-11-09 09:45 | OP.CCLET_ITS ---
11/09/2023 Rj Monzon [address] [place] [address] Re : Colonoscopy procedure for Tito Nunez Dear Dr. Monzon This procedure was performed on October. My impressions and recommendations are as follows: Impressions : - One large polyp in the cecum, removed with a hot snare. Resected and retrieved. - The examination was otherwise normal on direct and retroflexion views. Recommendations : - Discharge patient to home. - Resume previous diet. - Continue present medications. - Await pathology results. - Repeat colonoscopy in 3 years for surveillance. My findings are described in the full procedure note, which is enclosed. If I can be of further assistance, please feel free to contact me at Doctor phone number(s): , Work: . Sincerely, Byron Dalal MD 11/09/2023 9:44:39 AM This report has been signed electronically.
--- NOTE | 2023-11-09 09:47 | PCM.POST.ANE ---
Anesthesia: Postop Eval I Current Vital Signs Temperature: 98.5 F Pulse Rate: 72 Blood Pressure: 74/63 Respiratory Rate: 16 Pulse Ox: 97 Oxygen Delivery Method: Room Air Assessment Airway patent: Yes Spontaneous unlabored respirations: Yes Mental status: Asleep nausea: No Vomiting: No Anesthesia Complication: No Fluid Hydration Crystalloid volume administer (ml): 500 Total IV fluid infused: 500 Progress Note Anesthesia document: Postop Eval 1 completed: Yes
--- NOTE | 2023-11-09 10:39 | PCM.POSTANE2 ---
Anesthesia Postop Eval I Sum Postop Eval Completion status Anesthesia document: Postop Eval 1 completed: Yes Anesthesia Postop Eval I Summary Anesthesia Postop Eval I Summary: Anesthesia Postop Eval I: Assessment Summary Airway patent Yes 11/09/23 09:47 [email or web address] Spontaneous unlabored Yes 11/09/23 09:47 [email or web address] respirations Mental status Asleep 11/09/23 09:47 [email or web address] nausea No 11/09/23 09:47 [email or web address] Vomiting No 11/09/23 09:47 [email or web address] Anesthesia Postop Eval I: Fluid Summary Crystalloid volume administer 500 11/09/23 09:47 [email or web address] (ml) Colloids volume administered ( ml) Blood Product volume administered (ml) Total IV fluid infused 500 11/09/23 09:47 [email or web address] Anesthesia Postop Eval I: Summary Notes Anesthesia Complication No 11/09/23 09:47 [email or web address] Anesthesia Complication Comment: Post-operative progress note Anesthesia: Postop Eval II Evaluation Mental status: Awake and Calm Pain Level: 0 nausea: No Vomiting: No Complications Anesthesia Complication: No
== END 2023-11-09 10:38 | disposition home or self-care (01) ==
LOC: EN 07:48 → AC 07:50
PROVIDERS: PCP Family Medicine; Referring Provider Family Medicine; Visit Provider Surgery
PROC: 0DJD8ZZ Inspection of Lower Intestinal Tract, Via Natural or Artificial Opening Endoscopic (ICD-10-PCS; CPT 45378; principal; 2023-11-09 08:55)
DX: Z12.11 Encounter for screening for malignant neoplasm of colon (principal); G40.909 Epilepsy, unspecified, not intractable, without status epilepticus; D12.0 Benign neoplasm of cecum; K21.9 Gastro-esophageal reflux disease without esophagitis; Z87.19 Personal history of other diseases of the digestive system; Z86.010 Personal history of colon polyps; Z79.899 Other long term (current) drug therapy
CPT/HCPCS: 45385; 88305; J7120; J2405

== ENCOUNTER → 2023-11-17 | Outpatient (CLI) | payer MEDICARE, SELFPAY ==
[2023-11-17 09:13] LABS: Mucous, Urine 0 SEEN /hpf (<or=2+); Red Blood Cells-Urine 0 SEEN /hpf (0-5); Squamous Epithelial Cells - UA 0 SEEN /hpf (0-5)
[2023-11-17 11:59] LABS: Absolute Lymphocyte Count 1.68 X10^3/uL (0.83-4.51); Absolute Neutrophil Count 3.5 X10^3/uL (2.0-7.7); Basophil# 0.03 X10^3/uL; Basophil% 0.5 % (0-1); Eosinophil# 0.02 X10^3/uL; Eosinophils% 0.4 % (0-5); Hematocrit 41.5 % (40-54); Hemoglobin 14.1 g/dL (13.0-16.5); Lymphocyte # 1.68 X10^3/ul (0.83-4.51); Lymphocyte % 29.5 % (19-41); Mean Corpuscular Hgb 33.3 pg (27.0-32.0); Mean Corpuscular Volume 97.9 fL (80-94); Monocyte# 0.43 X10^3/uL; Monocyte% 7.5 % (0-10); NRBC Flagged by Analyzer 0 % (0-5); Neutrophil # 3.49 X10^3/uL (2.7-7.7); Neutrophil % 61.2 % (47-70); Platelet Count 300 K/mm3 (150-450); RBC Distribution Width CV 11.7 % (11.6-14.6); RBC Distribution Width SD 41.9 fl (35.1-43.9); Red Blood Count 4.24 M/mm3 (4.6-6.2); White Blood Count 5.7 K/mm3 (4.4-11.0)
[2023-11-17 12:12] LABS: Color, Urine Yellow (Yellow); Glucose, Dipstick Normal (Normal); Ketone-Dipstick 5 mg/dl (Negative); Leukocyte Esterase-Dipstick 100 /ul (Negative); Nitrite-Dipstick Positive (Negative); Occult Blood-Urine 10 /ul (Negative); Protein-Dipstick Negative (Negative); Specific Gravity, Urine 1.015 (1.002-1.030); Urine Bilirubin Dipstick Negative (Negative); Urine Clarity Sl. Cloudy (Clear); Urine Urobilinogen Normal (Normal); Urine pH 6.5 (5.0 - 8.0)
[2023-11-17 12:30] LABS: Protein, Urine (Random) 15.2 mg/dL (<11.9); Protein:Creat Ratio 115 mg/g CRE (0-200)
[2023-11-17 12:46] LABS: Vitamin B12 1050 pg/mL (211-911); Vitamin D,25 Hydroxy 58.5 ng/mL
[2023-11-17 12:51] LABS: Bacteria 2+ /hpf (None Seen); White Blood Cells 0-5 SEEN /hpf (0-5)
[2023-11-17 12:59] LABS: ALB/GLOB Ratio 0.8 RATIO (0.9-2.4); AST(SGOT) 49 U/L (15-37); Alanine Aminotransfer ALT/SGPT 66 U/L (16-61); Albumin, Serum 3.1 g/dL (3.2-5.0); Alkaline Phosphatase 63 U/L (45-117); Anion Gap 3 (5-15); BUN 22 mg/dL (7-18); BUN/Creat Ratio 15.5 RATIO (10-20); Calcium,Total 9.2 mg/dL (8.5-10.1); Chloride 107 mmol/L (98-107); Creatinine, Serum 1.42 mg/dL (0.70-1.30); EST Glomerular Filtration Rate 52 mL/min (>60); Est Glom Filt Rate - Afr Amer 63 mL/min (>60); Glucose 91 mg/dL (74-106); Magnesium 2.2 mg/dL (1.6-2.6); Phosphorus 3.2 mg/dL (2.5-4.9); Potassium 5.1 mmol/L (3.5-5.1); Protein, Total 7.1 g/dL (6.4-8.2); Sodium Level 138 mmol/L (136-145); Uric Acid 5.9 mg/dL (3.5-7.2)
[2023-11-17 18:33] LABS: PTHIN 44.9 pg/mL (18.4-80.1)
== END | disposition home or self-care (01) ==
LOC: MFPLAB 09:08
PROVIDERS: PCP Family Medicine; Visit Provider Family Medicine
DX: N18.30 Chronic kidney disease, stage 3 unspecified (principal); K21.9 Gastro-esophageal reflux disease without esophagitis
CPT/HCPCS: 36415; 80053; 81001; 82306; 82570; 82607; 83735; 83970; 84100; 84156; 84550; 85025

== ENCOUNTER → 2024-03-05 | Outpatient (CLI) | payer MEDICARE, SELFPAY ==
[2024-03-05 15:29] LABS: Absolute Neutrophil Count 4.3 X10^3/uL (2.0-7.7); Basophil# 0.03 X10^3/uL; Basophil% 0.5 % (0-1); Eosinophil# 0.01 X10^3/uL; Eosinophils% 0.2 % (0-5); Hematocrit 43.3 % (40-54); Hemoglobin 15.3 g/dL (13.0-16.5); Lymphocyte % 22.7 % (19-41); Mean Corp Hgb Conc 35.3 g/dL (32-36); Mean Corpuscular Hgb 33.8 pg (27.0-32.0); Mean Corpuscular Volume 95.8 fL (80-94); Mean Platelet Vol. 10.9 fl (6.2-12.0); Monocyte# 0.39 X10^3/uL; Monocyte% 6.3 % (0-10); NRBC Flagged by Analyzer 0 % (0-5); Neutrophil # 4.33 X10^3/uL (2.7-7.7); Platelet Count 214 K/mm3 (150-450); RBC Distribution Width CV 11.3 % (11.6-14.6); RBC Distribution Width SD 39.7 fl (35.1-43.9); Red Blood Count 4.52 M/mm3 (4.6-6.2); White Blood Count 6.2 K/mm3 (4.4-11.0)
[2024-03-05 15:36] LABS: PTHIN 34.7 pg/mL (18.4-80.1)
[2024-03-05 15:37] LABS: ALB/GLOB Ratio 0.8 RATIO (0.9-2.4); AST(SGOT) 44 U/L (15-37); Alanine Aminotransfer ALT/SGPT 74 U/L (16-61); Albumin, Serum 3.4 g/dL (3.2-5.0); Alkaline Phosphatase 64 U/L (45-117); Anion Gap 5 (5-15); BUN 24 mg/dL (7-18); BUN/Creat Ratio 15.9 RATIO (10-20); Calcium,Total 9.2 mg/dL (8.5-10.1); Chloride 106 mmol/L (98-107); Creatinine, Serum 1.51 mg/dL (0.70-1.30); EST Glomerular Filtration Rate 48 mL/min (>60); Est Glom Filt Rate - Afr Amer 59 mL/min (>60); Glucose 103 mg/dL (74-106); Potassium 4.4 mmol/L (3.5-5.1); Protein, Total 7.4 g/dL (6.4-8.2); Sodium Level 138 mmol/L (136-145)
[2024-03-05 15:40] LABS: Vitamin D,25 Hydroxy 33.4 ng/mL
[2024-03-05 15:49] LABS: Protein, Urine (Random) 6.1 mg/dL (<11.9); Protein:Creat Ratio 115 mg/g CRE (0-200)
== END | disposition home or self-care (01) ==
LOC: MTLAB 13:23
PROVIDERS: PCP Family Medicine; Referring Provider Family Medicine; Visit Provider Family Medicine
DX: N18.30 Chronic kidney disease, stage 3 unspecified (principal)
CPT/HCPCS: 36415; 80053; 82306; 82570; 83970; 84156; 85025

== ENCOUNTER → 2024-03-12 | Outpatient (CLI) | payer MEDICARE, SELFPAY ==
[2024-03-12 15:56] LABS: PSA,Total - Annual Screen 0.91 ng/mL (0.00-4.00)
== END | disposition home or self-care (01) ==
LOC: MFPLAB 11:44
PROVIDERS: PCP Family Medicine; Referring Provider Family Medicine; Visit Provider Family Medicine
DX: Z12.5 Encounter for screening for malignant neoplasm of prostate (principal)
CPT/HCPCS: 36415; 84153; G0103

== ENCOUNTER → 2024-03-15 | Outpatient (CLI) | payer MEDICARE, SELFPAY ==
--- NOTE | 2024-03-15 12:45 | US_ITS ---
PROCEDURE: KIDNEY AND BLADDER REASON FOR EXAM: Kidney disease TECHNIQUE: Bilateral renal ultrasound. COMPARISON: Sonogram from 2023. FINDINGS: Normal renal sizes, parenchymal thicknesses, and echotextures. No hydronephrosis. Kidneys are normal bilaterally apart from a simple cyst in the lateral mid aspect of the right kidney measuring up to 2 cm, essentially unchanged from the prior examination. No stones. Bladder is normal. Bilateral ureteral jets are noted. US/Kidney and Bladder IMPRESSION: Stable simple cyst of the right kidney. [facility]
== END | disposition home or self-care (01) ==
LOC: US 12:45
PROVIDERS: PCP Family Medicine; Referring Provider Family Medicine; Visit Provider Family Medicine
DX: N18.30 Chronic kidney disease, stage 3 unspecified (principal)
CPT/HCPCS: 76770

== ENCOUNTER → 2024-05-20 | Outpatient (CLI) | payer MEDICARE, SELFPAY ==
[2024-05-20 15:50] LABS: Hematocrit 39.2 % (40-54); Hemoglobin 13.5 g/dL (13.0-16.5); Mean Corp Hgb Conc 34.4 g/dL (32-36); Mean Corpuscular Hgb 33.8 pg (27.0-32.0); Mean Corpuscular Volume 98.2 fL (80-94); Mean Platelet Vol. 10.3 fl (6.2-12.0); Platelet Count 236 K/mm3 (150-450); RBC Distribution Width CV 11.3 % (11.6-14.6); RBC Distribution Width SD 41.1 fl (35.1-43.9); Red Blood Count 3.99 M/mm3 (4.6-6.2); White Blood Count 5.8 K/mm3 (4.4-11.0)
[2024-05-20 18:13] LABS: ALB/GLOB Ratio 1.2 RATIO (0.9-2.4); AST(SGOT) 37 U/L (<=37); Alanine Aminotransfer ALT/SGPT 40 U/L (<=46); Albumin, Serum 3.5 g/dL (3.4-4.8); Alkaline Phosphatase 55 U/L (40-129); Anion Gap 10 (5-15); BUN 25 mg/dL (4-19); BUN/Creat Ratio 17.7 RATIO (10-20); Bilirubin, Direct 0.23 mg/dL (0.00-0.30); Calcium,Total 8.8 mg/dL (7.6-11.0); Carbon Dioxide 25.5 mmol/L (21.0-32.0); Chloride 108 mmol/L (98-108); Creatinine, Serum 1.43 mg/dL (0.70-1.20); EST Glomerular Filtration Rate 52 (>60); Globulin 2.9 g/dL (2.2-4.2); Glucose 96 mg/dL (70-99); Potassium 4.6 mmol/L (3.3-5.1); Protein, Total 6.3 g/dL (5.9-8.4); Sodium Level 144 mmol/L (133-145); Total Bilirubin 0.43 mg/dL (0.00-1.30)
[2024-05-20 18:23] LABS: Valproic Acid (Depakene) Level 79 ug/mL (50-100)
== END | disposition home or self-care (01) ==
LOC: MTLAB 13:50
PROVIDERS: PCP Family Medicine; Referring Provider Psychiatry & Neurology Neurology; Visit Provider Psychiatry & Neurology Neurology
DX: G40.309 Generalized idiopathic epilepsy and epileptic syndromes, not intractable, without status epilepticus (principal)
CPT/HCPCS: 36415; 80053; 80164; 82248; 85027

== ENCOUNTER → 2024-05-21 | Outpatient (CLI) | payer MEDICARE, SELFPAY ==
[2024-05-21 18:31] LABS: Ammonia 21.7 umol/L (16-60)
== END | disposition home or self-care (01) ==
LOC: MTLAB 14:43
PROVIDERS: PCP Family Medicine; Referring Provider Psychiatry & Neurology Neurology; Visit Provider Psychiatry & Neurology Neurology
DX: G40.309 Generalized idiopathic epilepsy and epileptic syndromes, not intractable, without status epilepticus (principal)
CPT/HCPCS: 36415; 82140

== ENCOUNTER → 2024-07-10 | Outpatient (CLI) | payer MEDICARE, SELFPAY ==
[2024-07-10 11:31] LABS: Mucous, Urine 0 SEEN /hpf (<or=2+)
[2024-07-10 15:32] LABS: Absolute Lymphocyte Count 1.39 X10^3/uL (0.83-4.51); Absolute Neutrophil Count 3.7 X10^3/uL (2.0-7.7); Basophil# 0.04 X10^3/uL; Basophil% 0.7 % (0-1); Eosinophil# 0.03 X10^3/uL; Eosinophils% 0.5 % (0-5); Hematocrit 40.6 % (40-54); Lymphocyte # 1.39 X10^3/ul (0.83-4.51); Mean Corp Hgb Conc 34.5 g/dL (32-36); Mean Corpuscular Hgb 34.2 pg (27.0-32.0); Mean Corpuscular Volume 99.3 fL (80-94); Mean Platelet Vol. 11.2 fl (6.2-12.0); Monocyte# 0.44 X10^3/uL; Monocyte% 7.9 % (0-10); NRBC Flagged by Analyzer 0 % (0-5); Neutrophil # 3.65 X10^3/uL (2.7-7.7); Neutrophil % 65.5 % (47-70); Platelet Count 211 K/mm3 (150-450); RBC Distribution Width CV 11.4 % (11.6-14.6); RBC Distribution Width SD 42.5 fl (35.1-43.9); Red Blood Count 4.09 M/mm3 (4.6-6.2); White Blood Count 5.6 K/mm3 (4.4-11.0)
[2024-07-10 16:34] LABS: PTHIN 35 pg/mL (11-61)
[2024-07-10 16:50] LABS: ALB/GLOB Ratio 1.3 RATIO (0.9-2.4); AST(SGOT) 36 U/L (<=37); Alanine Aminotransfer ALT/SGPT 43 U/L (<=46); Albumin, Serum 3.7 g/dL (3.4-4.8); Alkaline Phosphatase 63 U/L (40-129); Anion Gap 9 (5-15); BUN 22 mg/dL (4-19); BUN/Creat Ratio 18.9 RATIO (10-20); Calcium,Total 8.8 mg/dL (7.6-11.0); Chloride 106 mmol/L (98-108); Cholesterol 170 mg/dL (<=200); Creatinine, Serum 1.17 mg/dL (0.70-1.20); EST Glomerular Filtration Rate 66 (>60); Globulin 2.8 g/dL (2.2-4.2); Glucose 64 mg/dL (70-99); High Density Lipoprotein 45 mg/dL; Low Density Lipoprotein Calc. 100 mg/dL; Phosphorus 2.6 mg/dL (2.7-4.5); Potassium 4.2 mmol/L (3.3-5.1); Protein, Total 6.5 g/dL (5.9-8.4); Sodium Level 140 mmol/L (133-145); Triglycerides 125 mg/dL; Very Low Density Lipoprotein 25 mg/dL (5-40); Vitamin D,25 Hydroxy 34.5 ng/mL (30-100); cholesterol:hdl ratio screen 3.81
[2024-07-10 20:38] LABS: Protein, Urine (Random) 19.5 mg/dL (0.0-12.0); Protein:Creat Ratio 155 mg/g CRE (0-200)
[2024-07-10 21:21] LABS: Color, Urine Yellow (Yellow); Glucose, Dipstick Normal (Normal); Ketone-Dipstick 5 mg/dl (Negative); Leukocyte Esterase-Dipstick 100 /ul (Negative); Nitrite-Dipstick Positive (Negative); Occult Blood-Urine Negative /ul (Negative); Protein-Dipstick 15 mg/dl (Negative); Specific Gravity, Urine 1.015 (1.002-1.030); Urine Bilirubin Dipstick Negative (Negative); Urine Clarity Sl. Cloudy (Clear); Urine Urobilinogen Normal (Normal); Urine pH 6.5 (5.0 - 8.0)
[2024-07-10 22:21] LABS: Amorphous Sediment 4+; Bacteria 2+ /hpf (None Seen); Red Blood Cells-Urine 0 SEEN /hpf (0-5); Squamous Epithelial Cells - UA 0-5 SEEN /hpf (0-5); White Blood Cells 25-50 SEEN /hpf (0-5)
== END | disposition home or self-care (01) ==
LOC: MFPLAB 11:25
PROVIDERS: PCP Family Medicine; Referring Provider Family Medicine; Visit Provider Family Medicine
DX: N18.30 Chronic kidney disease, stage 3 unspecified (principal); E78.5 Hyperlipidemia, unspecified; R35.89 Other polyuria
CPT/HCPCS: 36415; 80053; 80061; 81001; 82306; 82570; 83970; 84100; 84156; 85025; 87086

== ENCOUNTER → 2024-07-15 | Outpatient (CLI) | payer MEDICARE, SELFPAY | END | disposition home or self-care (01) | LOC: MTLAB 09:51 | PROVIDERS: PCP Family Medicine; Referring Provider Family Medicine; Visit Provider Family Medicine | DX: R35.89 Other polyuria (principal) | CPT/HCPCS: 87077; 87086; 87088; 87186 ==

== ENCOUNTER → 2024-09-24 | Outpatient (CLI) | payer MEDICARE, SELFPAY ==
[2024-09-24 12:02] LABS: Albumin, Serum 3.8 g/dL (3.4-4.8); Anion Gap 9 (5-15); BUN 19 mg/dL (4-19); BUN/Creat Ratio 14.2 RATIO (10-20); Calcium,Total 9.1 mg/dL (7.6-11.0); Carbon Dioxide 27.7 mmol/L (21.0-32.0); Chloride 105 mmol/L (98-108); Glucose 66 mg/dL (70-99); Potassium 4.6 mmol/L (3.3-5.1)
== END | disposition home or self-care (01) ==
LOC: LAB 09:55
PROVIDERS: PCP Family Medicine; Referring Provider Internal Medicine Nephrology; Visit Provider Internal Medicine Nephrology
DX: N18.31 Chronic kidney disease, stage 3a (principal)
CPT/HCPCS: 36415; 80069

== ENCOUNTER → 2024-11-15 | Outpatient (CLI) | payer MEDICARE, SELFPAY ==
[2024-11-15 11:16] LABS: Mucous, Urine 0 SEEN /hpf (<or=2+); Red Blood Cells-Urine 0 SEEN /hpf (0-5); Squamous Epithelial Cells - UA 0 SEEN /hpf (0-5)
[2024-11-15 12:12] LABS: Hematocrit 39.7 % (40-54); Hemoglobin 14.2 g/dL (13.0-16.5); Immature Granulocytes Count 0.020 X10^3/uL (0.0-0.0); Mean Corp Hgb Conc 35.8 g/dL (32-36); Mean Corpuscular Volume 96.6 fL (80-94); Mean Platelet Vol. 10.5 fl (6.2-12.0); NRBC Flagged by Analyzer 0 % (0-5); Platelet Count 187 K/mm3 (150-450); RBC Distribution Width CV 11.4 % (11.6-14.6); RBC Distribution Width SD 40.5 fl (35.1-43.9); Red Blood Count 4.11 M/mm3 (4.6-6.2); White Blood Count 5.3 K/mm3 (4.4-11.0)
[2024-11-15 12:13] LABS: Color, Urine Yellow (Yellow); Glucose, Dipstick Normal (Normal); Ketone-Dipstick Negative (Negative); Leukocyte Esterase-Dipstick 100 /ul (Negative); Nitrite-Dipstick Positive (Negative); Occult Blood-Urine Negative /ul (Negative); Protein-Dipstick 30 mg/dl (Negative); Specific Gravity, Urine 1.015 (1.002-1.030); Urine Bilirubin Dipstick Negative (Negative)
[2024-11-15 12:54] LABS: Creatinine, Urine (random) 142.00 mg/dL (39.00-259.00); Protein, Urine (Random) 10.8 mg/dL (0.0-12.0); Protein:Creat Ratio 76 mg/g CRE (0-200)
[2024-11-15 15:37] LABS: PTHIN 37 pg/mL (11-61)
[2024-11-15 15:49] LABS: AST(SGOT) 48 U/L (<=37); Alanine Aminotransfer ALT/SGPT 59 U/L (<=46); Albumin, Serum 3.6 g/dL (3.4-4.8); Alkaline Phosphatase 58 U/L (40-129); Anion Gap 9 (5-15); BUN 17 mg/dL (4-19); BUN/Creat Ratio 12.9 RATIO (10-20); Calcium,Total 9.2 mg/dL (7.6-11.0); Carbon Dioxide 25.2 mmol/L (21.0-32.0); Chloride 107 mmol/L (98-108); Cholesterol 162 mg/dL (<=200); Globulin 2.8 g/dL (2.2-4.2); Glucose 75 mg/dL (70-99); Low Density Lipoprotein Calc. 95 mg/dL; Potassium 5.0 mmol/L (3.3-5.1); Triglycerides 107 mg/dL; Very Low Density Lipoprotein 21 mg/dL (5-40); Vitamin D,25 Hydroxy 35.4 ng/mL (30-100); cholesterol:hdl ratio screen 3.51
== END | disposition home or self-care (01) ==
LOC: MFPLAB 11:14
PROVIDERS: PCP Family Medicine; Visit Provider Family Medicine
DX: N18.30 Chronic kidney disease, stage 3 unspecified (principal); E78.5 Hyperlipidemia, unspecified
CPT/HCPCS: 36415; 80053; 80061; 81001; 82306; 82570; 83970; 84156; 85025

== ENCOUNTER → 2024-11-19 | Outpatient (CLI) | payer MEDICARE, SELFPAY | END | disposition home or self-care (01) | LOC: MFPLAB 10:53 → LABSPEC 10:54 | PROVIDERS: PCP Family Medicine; Visit Provider Family Medicine | DX: N39.0 Urinary tract infection, site not specified (principal) | CPT/HCPCS: 87086; 87088 ==